=== PATIENT | female | born 1970 | race Caucasian/White ===

== ENCOUNTER → 2016-04-24 | Outpatient (CLI) | payer BC ==
[~2016-04-24] MED LIST: ACET-1256 PO; ATV1 PO; YAZ PO
== END | disposition home or self-care (01) ==
LOC: C.PATHSPEC 14:35
PROVIDERS: ATTEND Obstetrics & Gynecology
DX: N84.1 Polyp of cervix uteri (principal)

== ENCOUNTER → 2016-04-24 | Outpatient (CLI) | payer BC | END | disposition home or self-care (01) | LOC: C.PAPS 16:08 | PROVIDERS: ATTEND Obstetrics & Gynecology | DX: Z01.411 Encounter for gynecological examination (general) (routine) with abnormal findings (principal); N84.1 Polyp of cervix uteri ==

== ENCOUNTER → 2016-11-12 | Outpatient (CLI) | payer BC ==
[2016-11-12 14:45] LABS: URINE APPEARANCE CLEAR (CLEAR); URINE BILIRUBIN NEG (NEG); URINE COLOR YELLOW; URINE NITRITE NEG (NEG); URINE SPECIFIC GRAVITY 1.014 (1.000-1.030); UROBILINOGEN NEG (NEG)
[2016-11-12 14:55] LABS: MANUAL MICROSCOPIC REQUIRED? NO; REVIEW REQ? NO
== END | disposition home or self-care (01) ==
LOC: C.LABSPEC 14:21
PROVIDERS: ATTEND Obstetrics & Gynecology
DX: N39.0 Urinary tract infection, site not specified (principal); R30.0 Dysuria

== ENCOUNTER → 2016-11-20 | Outpatient (CLI) | payer BC | END | disposition home or self-care (01) | LOC: C.LAB 17:04 | PROVIDERS: ATTEND Obstetrics & Gynecology | DX: R14.0 Abdominal distension (gaseous) (principal); R53.83 Other fatigue; N92.0 Excessive and frequent menstruation with regular cycle ==

== ENCOUNTER → 2017-05-16 | Outpatient (CLI) | payer BC | END | disposition home or self-care (01) | LOC: C.PAPS 15:10 | PROVIDERS: ATTEND Obstetrics & Gynecology | DX: Z12.4 Encounter for screening for malignant neoplasm of cervix (principal) ==

== ENCOUNTER → 2017-07-31 | Outpatient (CLI) | payer BC ==
--- NOTE | 2017-07-31 15:07 | MAMMOGRAPHY REPORT ---
BILATERAL DIGITAL SCREENING MAMMOGRAM TOMOSYNTHESIS WITH CAD: 07/31/2017 CLINICAL HISTORY: Routine screening. Patient has no complaints. TECHNIQUE: Breast tomosynthesis in addition to standard 2D mammography was performed. Current study was also evaluated with a Computer Aided Detection (CAD) system. COMPARISON: Comparison is made to exams dated: 03/24/2014 mammogram, 06/20/2011 mammogram, 10/24/2010 m ammogram, 09/28/2009 mammogram - , and 08/06/2008. BREAST COMPOSITION: The tissue of both breasts is heterogeneously dense, which may obscure small mas ses. FINDINGS: The parenchymal pattern is unchanged. No developing mass, architectural distortion or clus ter of suspicious microcalcifications is seen in either breast. IMPRESSION: ACR BI-RADS CATEGORY 2: BENIGN There is no mammographic evidence of malignancy. A 1 year screening mammogram is recommended. The pa tient will receive written notification of the results. Approximately 10% of breast cancers are not detected with mammography. A negative mammographic report should not delay biopsy if a clinically suggestive mass is present. Dayna Davidson M.D. ay/:07/31/2017 09:02:42 Test Development Engineer: Alaina DE JESUS(R)(M), letter sent: Normal 1/2 BI-RADS Code: ACR BI-RADS Category 2: Benign
== END | disposition home or self-care (01) ==
LOC: C.MAMM 08:13
PROVIDERS: ATTEND Obstetrics & Gynecology
DX: Z12.31 Encounter for screening mammogram for malignant neoplasm of breast (principal)

== ENCOUNTER 2023-04-28 01:10 | Observation (INO) ==
--- NOTE | 2023-04-28 01:28 | Emergency Department Note ---
Impression & Plan Syncope, Abdominal pain, Ileitis, Hypotension ED Provider Note CHIEF COMPLAINT: Abdominal pain, syncope HISTORY OF PRESENTING ILLNESS: This 52-year-old female patient presents to the emergency department for evaluation of abdominal pain and syncope. The patient states that she has had abdominal pain that started 2 nights ago. The pain then lasted all day which is progressively getting worse. She states that the pain starts in her lower abdomen and then radiates up to her upper abdomen and feels like severe muscle spasms in her stomach. Tonight when she stood up to get out of bed she had a syncopal episode. The patient's reports that he heard a loud thump and found her lying on the floor. The patient states that she got very lightheaded and dizzy when she stood up and knew that she was going to pass out. The patient does not think she hit her head. Denies headache, dizziness, change in vision, nausea, vomiting, or change in personality. Denies any chest pain or SOB prior to or after the syncopal episode. She denies any pain from falling. No nausea or vomiting. Denies any fevers, cough, or URI symptoms. Denies any urinary symptoms. Denies constipation, diarrhea, or changes in her BMs. She had a normal BM yesterday and a small BM this morning. Took Advil prior to going to bed and tried Miralax earlier today too. She is currently going through menopause and her periods are random. Her LMP was 2 months ago. She denies a personal or family history of Crohn's Disease or Ulcerative Colitis. Last colonoscopy was about 3 years ago through [facility] per patient. She states that her colonoscopy showed "an area that was inflamed" that seemed to resolved after a clear liquid diet. She follows up with [facility] doctor's in [place] for intermittent right sided and upper abdominal pain. REVIEW OF SYSTEMS: See HPI for pertinent positives and pertinent negatives. ALLERGIES: Nitrates, macrobid, Bactrim MEDICATIONS: Lisinopril, HCTZ, metoprolol, estrogen PAST MEDICAL HISTORY: HTN. Denies any abdominal surgeries. PHYSICAL EXAM: VITALS: Vitals are noted on the nurse's note and reviewed by myself. GENERAL: Non toxic, no acute distress, non-diaphoretic. SKIN: No rashes or abnormal skin lesions to the abdomen. Capillary refill <2 sec. HEAD: Normocephalic and atraumatic. No tenderness to palpation or step-offs felt. EYES: PERRLA. EOMI. Conjunctivae without injection, sclerae without icterus. NOSE: Patent without discharge. MOUTH: Mucous membranes moist. Uvula midline. Airway patent. NECK: Supple without nuchal rigidity. HEART: Regular rate and rhythm without murmurs gallops or rubs. LUNGS: Clear to auscultation bilaterally without wheezes, rales or rhonchi. No retractions or accessory muscle use. ABDOMEN: Positive bowel sounds x 4. Normal tympanic percussion. Soft, diffusely tender to palpation, but increased tenderness centrally and in the upper abdomen. No masses or organomegaly. No CVA tenderness. Shaffer sign negative. No guarding or rebound tenderness. No focal RLQ or LLQ tenderness. MUSCULOSKELETAL: No gross musculoskeletal defects. Full range of motion of the bilateral upper and lower extremities without tenderness to palpation. Strength 5/5 and equal in the bilateral upper and lower extremities. NEURO: Patient was alert and oriented. No focal neurological deficits. Normal mental status exam. No focal neurological deficits. DIFFERENTIAL DIAGNOSIS: Differential diagnosis includes hepatitis, pancreatitis, cholecystitis, cholelithiasis, appendicitis, kidney stone, pyelonephritis, UTI, gastritis, gastroenteritis, mesenteric adenitis, obstruction, constipation, hernia, abdominal abscess, perforation, diverticulitis, IBD, ischemic colitis, abdominal aortic aneurysm, , ectopic , ovarian cyst, ovarian torsion, acute salpingitis, cardiac arrhythmia, MN, vasovagal syndrome, aortic stenosis, pulmonary stenosis, hypertrophic cardiomyopathy, mitral valve prolapse, prolonged QT syndrome, sick sinus syndrome, drug toxicity, tension pneumothorax, cardiopulmonary syncope, pulmonary vascular disease, basilar artery insufficiency, subclavian steal syndrome, migraine, carotid sinus syndrome, orthostatic hypotension, dehydration, hyperventilation, psychiatric causes, or others. ED COURSE AND MEDICAL DECISION MAKING: MONITOR: Continuous teletypesetter monitor: Order was placed for continuous teletypesetter monitor. Patient was placed on the teletypesetter monitor and continuous pulse ox. Patient was noted to be in normal sinus rhythm at an initial rate of 64 bpm per my interpretation. EKG: EKG was interpreted by myself as sinus bradycardia at [address]pm with no acute ST or T wave changes. MEDICATIONS GIVEN: A total of 1.5 L normal saline solution bolus. Toradol 10 mg IV and Zofran 4 mg IV. The patient declined any additional medication for pain while in the emergency department. INTERPRETATION OF LABS: I interpreted the labs with full lab results as below in the lab section of this note. White blood cell count elevated at 15.41. Hemoglobin normal at 15.2. Platelet count normal at 271. Creatinine elevated 1.26 and glucose 103, but CMP otherwise normal. Lipase normal. ESR and CRP were normal. High-sensitivity troponin normal. Serum hCG negative. Urinalysis negative for infection. INTERPRETATION OF IMAGING: Chest x-ray interpreted by myself as negative for acute cardiopulmonary etiology. Radiology report still pending. CT scan of the abdomen pelvis with IV contrast shows a segment of diffuse annular thickening within the distal ileum. Associated with this is adjacent inflammatory change and moderate mesenteric bursitis which is likely reactive. Findings may be due to active inflammatory bowel disease. Consider MR enterography if there is further concern. Submucosal enhancement within the cecum and ascending colon which may be reactive in nature. No evidence of bowel obstruction. CONSULTATIONS: Dr. Blankenship of GI. On-call hospitalist. MDM SUMMARY: I examined the patient. The patient has had abdominal pain for the past 2 nights with development of a syncopal episode prior to arrival. The patient states that she felt dizzy and lightheaded and knew that she was going to pass out when she stood up. An IV lock was placed and labs were drawn. The patient was medicated as above with improvement of her pain, but not full resolution of her pain. She declined any additional medication for pain while in the ER. White blood cell count elevated at 15.41 and creatinine elevated at 1.26. Remainder of the laboratory studies as above without significant abnormalities. Chest x-ray, EKG, and high-sensitivity troponin were normal. I do not suspect ACS at this time. The patient did not hit her head and she denies any headache, dizziness, change in vision, change in personality, or other symptoms suggesting need for CT scan of the head at this time. CT scan of the abdomen pelvis with IV contrast showed findings that may be due to active inflammatory bowel disease. I spoke with Dr. Blankenship of GI who stated the GI findings could be followed up/worked up as an outpatient and she did not require admission from a GI standpoint. However, the patient continued to have hypotension and bradycardia while in the emergency department. The patient states that this is not normal for her to have persisting low blood pressure. However, will sometimes have intermittent low blood pressures since starting her hormone replacement therapy. The patient was given a total of 1.5 L of normal saline solution bolus without improvement of her blood pressures. Due to the patient's persisting hypotension, bradycardia, and her syncopal episode along with the CT scan findings, I feel the patient requires admission for further evaluation and treatment. I spoke with the on-call hospitalist who agreed to admit the patient for further management. Please refer to their dictation for further details. The patient's care was transferred in stable condition. DIAGNOSIS: Syncope Hypotension Abdominal pain with abnormal CT scan findings Past Med/Surg History Medical History (Updated 04/28/23 @ 20:45 by Yomaira Goldman PA-C) Pituitary adenoma Menopausal and perimenopausal disorder Hypertension Surgical History (Updated 04/28/23 @ 13:29 by Alida Chan MD) S/P transsphenoidal hypophysectomy Family History (Updated 04/28/23 @ 13:32 by Alida Chan MD) Mother Hypertension Father FHx: liver cancer Social History (Updated 04/28/23 @ 13:30 by Alida Chan MD) Smoking Status: Never smoker Do You Dip or Chew Tobacco: No; Hx Alcohol Use: No Hx Substance Use: No Preferred Language: Tuvaluan Communication Ability: Effective Platform Operations Director Required: No Beliefs That Will Affect Care: None Current Living Situation: Spouse Other Information That Helps Us Care for You: No Feels Safe at Home: Yes Safety Concerns: Feels Safe At This Time Assistive Devices: None Allergies Allergies Allergy/AdvReac Type Severity Reaction Status Date / Time Nitrate Analogues Allergy Intermediate RASH Verified 04/28/23 02:03 nitrofurantoin Allergy Intermediate RASH Verified 04/28/23 02:03 Sulfa (Sulfonamide Allergy Intermediate RASH Verified 04/28/23 02:03 Antibiotics) trimethoprim Allergy Intermediate RASH Verified 04/28/23 02:03 metronidazole [From Flagyl] Allergy Rash Verified 04/28/23 14:09 Home Meds Home Medications Medication Instructions Recorded Confirmed estradiol-norethindrone acet 1 1 tab PO DAILY 04/28/23 04/28/23 mg-0.5 mg tablet hydrochlorothiazide 12.5 mg capsule 12.5 mg PO DAILY 04/28/23 04/28/23 lisinopril 20 mg tablet 20 mg PO DAILY 04/28/23 04/28/23 metoprolol succinate 25 mg 25 mg PO DAILY 04/28/23 04/28/23 tablet,extended release 24 hr trazodone 50 mg tablet 25 mg PO HS 04/28/23 04/28/23 Results & Data (ED) Vital Signs Vital Signs - 24 hr 04/28/23 01:21 04/28/23 02:18 04/28/23 02:19 Temperature 36.2 C L Temperature Source Temporal Artery Scan Pulse Rate 66 55 L Pulse Rate [Apical] 57 L Pulse Rhythm Regular Pulse Rhythm [Apical] Regular Pulse Strength [Apical] Normal Respiratory Rate 18 16 16 Respiratory Effort / Characteristics Non-Labored Spontaneous Respiratory Depth Normal Respiratory Pattern Regular Blood Pressure 139/87 Blood Pressure [Right Arm] 93/57 L Blood Pressure Mean 104 Blood Pressure Mean [Right Arm] 69 Blood Pressure Position [Right Arm] Semi-fowlers Pulse Oximetry 99 100 97 Oxygen Delivery Method Room Air Room Air Room Air Sepsis Recent Fever Within 48 Hours No Sepsis New/Unexplained Change in Mental Status No Sepsis Action Taken by Nursing No Action Required 04/28/23 03:30 04/28/23 04:00 04/28/23 06:00 Temperature Temperature Source Pulse Rate Pulse Rate [Apical] 57 L 58 L 59 L Pulse Rhythm Pulse Rhythm [Apical] Regular Regular Regular Pulse Strength [Apical] Normal Normal Normal Respiratory Rate 16 16 16 Respiratory Effort / Characteristics Non-Labored Spontaneous Non-Labored Spontaneous Non-Labored Spontaneous Respiratory Depth Normal Normal Normal Respiratory Pattern Regular Regular Regular Blood Pressure Blood Pressure [Right Arm] 130/76 88/55 L 105/60 Blood Pressure Mean Blood Pressure Mean [Right Arm] 94 66 75 Blood Pressure Position [Right Arm] Semi-fowlers Semi-fowlers Semi-fowlers Pulse Oximetry 99 96 99 Oxygen Delivery Method Room Air Room Air Room Air Sepsis Recent Fever Within 48 Hours Sepsis New/Unexplained Change in Mental Status Sepsis Action Taken by Nursing 04/28/23 06:15 04/28/23 06:30 04/28/23 07:15 Temperature Temperature Source Pulse Rate Pulse Rate [Apical] 58 L 58 L 69 Pulse Rhythm Pulse Rhythm [Apical] Regular Regular Pulse Strength [Apical] Normal Normal Respiratory Rate 16 16 14 Respiratory Effort / Characteristics Non-Labored Spontaneous Non-Labored Spontaneous Respiratory Depth Normal Normal Respiratory Pattern Regular Regular Blood Pressure Blood Pressure [Right Arm] 96/56 L 92/57 L 100/60 Blood Pressure Mean Blood Pressure Mean [Right Arm] 69 68 73 Blood Pressure Position [Right Arm] Semi-fowlers Semi-fowlers Pulse Oximetry 97 97 97 Oxygen Delivery Method Room Air Room Air Room Air Sepsis Recent Fever Within 48 Hours Sepsis New/Unexplained Change in Mental Status Sepsis Action Taken by Nursing 04/28/23 07:30 Temperature Temperature Source Pulse Rate Pulse Rate [Apical] 62 Pulse Rhythm Pulse Rhythm [Apical] Pulse Strength [Apical] Respiratory Rate 14 Respiratory Effort / Characteristics Respiratory Depth Respiratory Pattern Blood Pressure Blood Pressure [Right Arm] 113/65 Blood Pressure Mean Blood Pressure Mean [Right Arm] 81 Blood Pressure Position [Right Arm] Pulse Oximetry 97 Oxygen Delivery Method Room Air Sepsis Recent Fever Within 48 Hours Sepsis New/Unexplained Change in Mental Status Sepsis Action Taken by Nursing Laboratory Data 04/28/23 01:55 04/28/23 01:55 Lab Results 04/28/23 04/28/23 04/28/23 Range/Units 01:55 02:20 07:39 WBC 15.41 H (4.8-10.8) K/ul RBC 4.78 (4.20-5.40) M/uL Hgb 15.2 (12.0-16.0) g/dl Hct 43.6 (37.0-47.0) % MCV 91.2 (80.0-100.0) fL MCH 31.8 (25.0-34.0) pg MCHC 34.9 (32.0-36.0) g/dL RDW Std Deviation 39.9 (36.4-46.3) fL RDW Coeff of Silas 11.9 (11.5-14.5) % Plt Count 271 (130-400) K/uL MPV 10.4 (9.4-12.4) fL ESR 3 (0-30) mm/hr Sodium 137 (136-145) mmol/L Potassium 3.5 (3.5-5.1) mmol/L Chloride 101 (98-107) mmol/L Carbon Dioxide 28 (21-32) mmol/L Anion Gap 8 (3-11) BUN 18 (6-23) mg/dl Creatinine 1.26 H (0.6-1.2) mg/dl Est Cr Clr Drug Dosing 50.2 ml/min Est GFR ( Amer) 56.3 ml/min Est GFR (Non-Af Amer) 48.6 ml/min BUN/Creatinine Ratio 14.3 (10-20) Glucose 103 H (70-99(Fasting)) mg/dl Calcium 9.1 (8.6-10.3) mg/dl Total Bilirubin 0.8 (0.2-1.0) mg/dl AST 14 (13-39) U/L ALT 6 L (7-52) U/L Alkaline Phosphatase 52 (34-104) U/L Troponin I High Sens 3.0 (0-14) pg/ml C-Reactive Protein < 0.50 (0-0.5) mg/dl Total Protein 7.3 (6.0-8.3) gm/dl Albumin 4.6 (3.4-5.0) gm/dl Globulin 2.7 (2.5-4.0) gm/dl Albumin/Globulin Ratio 1.7 (0.9-2) Lipase 17 (11-82) U/L TSH 1.319 (0.300-4.500) uIu/ml HCG, Qual Negative (Negative) Cortisol AM Sample 11.15 (6.2-22.6) mcg/dl Urine Color Yellow Urine Appearance Clear (Clear) Urine pH 5.5 (4.5-7.5) Ur Specific Sullivan >= 1.030 (1.000-1.030) Urine Protein 1+ H (Negative) Urine Glucose (UA) Negative (Negative) Urine Ketones Negative (Negative) Urine Blood Negative (Negative) Urine Nitrite Negative (Negative) Urine Bilirubin 1+ H (Negative) Urine Urobilinogen Negative (Negative) Ur Leukocyte Esterase Negative (Negative) Urine RBC 0-4 (0-4) /hpf Urine WBC 0-5 (0-5) /hpf Ur Epithelial Cells 10-20 H (0-5) /lpf Urine Bacteria Negative (Negative) Urine Mucus Present A (None Prsent) Administered Medications Heparin Sodium (Porcine) (Heparin Sod 5,000 Unit/0.5 Ml Vial) 5,000 units SQ Q8 DIONICIO Stop: 05/28/23 13:59 Last Admin: 04/28/23 14:20 Dose: 5,000 units Documented By: KIRA Piperacillin Sod/Tazobactam (Sod 4.5 gm/ Dextrose) 100 mls @ 25 mls/hr IV Q8H [facility]; Protocol Stop: 05/08/23 13:59 Last Infusion: 04/28/23 18:34 Dose: Infused Documented By: Admin: 04/28/23 14:18 Dose: 25 mls/hr Documented By: KIRA Sodium Chloride (Nss) 1,000 mls @ 125 mls/hr IV .Q8H DIONIICO Stop: 04/28/23 20:29 Last Admin: 04/28/23 19:35 Dose: 125 mls/hr Documented By: LETICIA Polyethylene Glycol (Polyethylene (Miralax) 17 Gm Pack) 17 gm PO BID DIONICIO Stop: 05/28/23 11:12 Last Admin: 04/28/23 12:36 Dose: Not Given Documented By: KIRA Discontinued Medications Acetaminophen (Acetaminophen 325 Mg Tab) 650 mg PO Q4H PRN PRN Reason: Pain Stop: 05/28/23 09:37 Last Admin: 04/28/23 09:43 Dose: 650 mg Documented By: TANA Sodium Chloride (Nss) 1,000 mls @ 999 mls/hr IV .Q1H1M STA Stop: 04/28/23 02:37 Last Infusion: 04/28/23 03:15 Dose: Infused Documented By: Admin: 04/28/23 02:10 Dose: 999 mls/hr Documented By: MAXIMO Sodium Chloride (Nss) 500 mls @ 999 mls/hr IV .Q31M ONE Stop: 04/28/23 05:36 Last Infusion: 04/28/23 06:09 Dose: Infused Documented By: Admin: 04/28/23 05:37 Dose: 999 mls/hr Documented By: MAXIMO Sodium Chloride (Nss) 500 mls @ 125 mls/hr IV .Q4H [facility] Stop: 04/28/23 12:30 Last Infusion: 04/28/23 12:37 Dose: Infused Documented By: Admin: 04/28/23 12:36 Dose: Not Given Documented By: Admin: 04/28/23 08:25 Dose: 125 mls/hr Documented By: TANA Piperacillin Sod/Tazobactam Sod (Zosyn) 4.5 gm in 100 mls @ 200 mls/hr IV ONE ONE Stop: 04/28/23 08:29 Last Infusion: 04/28/23 08:55 Dose: Infused Documented By: Admin: 04/28/23 08:25 Dose: 200 mls/hr Documented By: TANA Ioversol (Optiray 320 500ml) 88 ml IV ONCE ONE Stop: 04/28/23 03:29 Last Admin: 04/28/23 03:28 Dose: 88 ml Documented By: LORNA Ketorolac Tromethamine (Ketorolac Tromethamine 15 Mg/Ml Vial) 10 mg IV NOW STA Stop: 04/28/23 01:38 Last Admin: 04/28/23 02:13 Dose: 10 mg Documented By: MAXIMO Ondansetron HCl (Ondansetron Inj 2 Mg/Ml 2 Ml Vial) 4 mg IV NOW STA Stop: 04/28/23 01:38 Last Admin: 04/28/23 02:11 Dose: 4 mg Documented By: MAXIMO Polyethylene Glycol (Polyethylene (Miralax) 17 Gm Pack) 17 gm PO BID DIONICIO Stop: 05/28/23 09:44 Last Admin: 04/28/23 09:44 Dose: 17 gm Documented By: TANA Imaging Data Radiologist's Impression: Abdomen/Pelvis CT 04/28/23 01:38 Exam(s): CT ABDOMEN + PELVIS With Contrast IV Amt: 88 cc's optiray 320 EXAM: CT Abdomen and Pelvis With Intravenous Contrast CLINICAL HISTORY: Reason for exam: Abdominal pain. TECHNIQUE: Axial computed tomography images of the abdomen and pelvis with intravenous contrast. CTDI is 14.14 mGy and DLP is 696.8 mGy-cm. Automated exposure control was utilized for the study. A dose lowering technique was utilized adhering to the principles of ALARA. CONTRAST: Patient received 88 cc's optiray 320 of IV contrast COMPARISON: No relevant prior studies available. FINDINGS: Lung bases: Unremarkable. No mass. No consolidation. ABDOMEN: Liver: Unremarkable. No mass. Gallbladder and bile ducts: Unremarkable. No calcified stones. No ductal dilation. Pancreas: Unremarkable. No mass. No ductal dilation. Spleen: Unremarkable. No splenomegaly. Adrenals: Unremarkable. No mass. Kidneys and ureters: Left renal cysts mixed. No hydronephrosis. Stomach and bowel: Submucosal enhancement within the cecum, and a sending colon which may be reactive in nature. No evidence of bowel obstruction. PELVIS: Appendix: Normal appendix. Bladder: Unremarkable. No mass. Reproductive: Suspected fibroid noted within the right aspect of the uterus. ABDOMEN and PELVIS: Intraperitoneal space: There is a segment of the diffuse annular thickening within the distal ileum. Associated with this is adjacent inflammatory change and moderate mesenteric ascites, likely reactive. Findings may be due to active inflammatory bowel disease. Consider MR enterography if there is further concern. Moderate mesenteric ascites. No free air. Bones/joints: Degenerative changes in the spine. No acute fracture. No dislocation. Soft tissues: Umbilical hernia containing fat. Vasculature: Prominent pelvic veins which may be due to congestion. Atherosclerotic disease. No abdominal aortic aneurysm. Lymph nodes: Unremarkable. No enlarged lymph nodes. IMPRESSION: 1. There is a segment of the diffuse annular thickening within the distal ileum. Associated with this is adjacent inflammatory change and moderate mesenteric ascites, likely reactive. Findings may be due to active inflammatory bowel disease. Consider MR enterography if there is further concern. 2. Submucosal enhancement within the cecum, and a sending colon which may be reactive in nature. 3. No evidence of bowel obstruction. 4. No other acute findings. 5. Incidental findings as described. Electronically signed by: Fareed Garsia MD 04/28/23 04:59 AM Discharge Plan Visit Data Chief Complaint: Syncope (Near Syncope) Stated Complaint: ABD PAIN,PASSED OUT ED Provider: Katie Ocasio ED Midlevel Provider: Yomaira Goldman. Discharge Problem: Syncope, Abdominal pain, Ileitis, Hypotension Patient Disposition: Admitted As Inpatient Condition: Good Discharge Instructions Interventions: ED Discharge Assessment Last Done: 04/28/23 10:35 Discharge Problem: Syncope Qualifiers: Encounter type: initial encounter Abdominal pain Qualifiers: Abdominal location: generalized Qualified Code(s): R10.84 - Generalized abdominal pain Hypotension Qualifiers: Hypotension type: unspecified hypotension type Qualified Code(s): I95.9 - Hypotension, unspecified
--- OUTSIDE RECORDS SUMMARY | 2023-04-28 01:37 | External Medical Summary | Summary of Care ---
Author Name Unknown Organization [facility] Address [address] [place] [address] Phone [phone] Care Team Providers Care It Sales Executive Name Role Phone Ernesto Alex MD Primary Care Provider +1- [phone] Reason for Visit * Reason Onset Date Comments Health Maintenance 04/10/2023 Encounter Details Date Type Department Care Team (Late st Contact Info) Description 04/10/2023 Telephone [facility] [address] [place] [address] Ernesto Alex MD [address] [place] [address] Health Maintenance Allergies Active Allergy Reactions Criticality Noted Date Comments Sulfa Antibiotics 05/30/2005 Severe stomach pain Metronidazole 07/06/2014 Nitrofurantoin 05/30/2005 Severe stomach pain documented as of this encounter (statuses as of 04/10/2023) Medications Medication Sig Dispensed Refills Start Date End Date Status Metoprolol Succinate ER 25 MG Oral Tablet Extended Release 24 Hour (toPROL XL) Take 1 Tablet by mouth in the morning. 30 Tablet 5 07/18/2022 Active Ibuprofen 800 MG Oral Tablet (Motrin)Indications: Oral abscess Take 1 Tablet by mouth in the morning and 1 Tablet at noon and 1 Tablet before bedtime. with food for pain. 30 Tablet 1 09/15/2022 Active traZODone HCl 50 MG Oral Tablet (Desyrel)Indications :Insomnia, unspecified type take 1/2 tablet by mouth at bedtime 45 Tablet 1 10/17/2022 Active Triamcinolone Acetonide 0.1 % External Cream (Aristocort)Indicati ons:Dermatitis Apply topically to affected area 2 times a day. To affected area. 45 g 5 10/25/2022 Active Lisinopril 20 MG Oral Tablet (Prinivil) Take 1 Tablet by mouth in the morning. 30 Tablet 11 11/02/2022 Active hydroCHLOROthiazide 12.5 MG Oral Capsule (Hydrodiuril)Indicat ions:HTN, goal below 130/80 Take 1 Capsule by mouth in the morning. 90 Capsule 3 11/30/2022 Active Hospital, Clinic, or Other Facility Administered Medication Ordered Dose Route Frequency Start Date End Date Status Albuterol Sulfate (ACCUNEB) nebulizer solution 0.63 mgIndications:TENA (dyspnea on exertion) 0.63 mg NEBULIZER PRN 10/11/2017 Act karoline documented as of this encounter (statuses as of 04/10/2023) Active Problems Problem Noted Date Diagnosed Date Dyshidrotic eczema 10/10/2011 Other chronic allergic conjunctivitis 01/09/2011 Calculus of kidney 11/30/1998 Allergic rhinitis 11/02/1996 Insomnia 11/02/1996 Overview: ICD-10 update of inactive term documented as of this encounter (statuses as of 04/10/2023) Resolved Problems Problem Noted Date Diagnosed Date Resolved Date Pituitary adenoma 11/19/2016 07/22/2022 Chronic sinusitis 01/09/2011 08/09/2017 ADVANCE DIRECTIVE INFORMATION 11/22/2004 08/22/2017 Overview: No, Advance Directive brochure offered , patient declined. Chest pain 06/23/2003 10/26/2015 Cough 06/23/2003 10/26/2015 ACUTE PHARYNGITIS 06/23/2003 05/20/2008 Overview: Resolved per Benign Acute Dxs Protocol #3 Menstruation, irregular 11/19/200006/25 Female genital symptoms 11/19/200007/25 Overview: ICD-10 update of inactive term ADJ DISORDER W/DEPRES MOOD 11/02/1996 1 04/28/1999 Other disorder of menstruati on and other abnormal bleeding from female genital tract 12/24/1999 HABITUAL ABORTER-UNSPEC 07/23 documented as of this encounter (statuses as of 04/10/2023) Immunizations Name Administration Dates Next Due TD, Preservative Free 07/24/2017 07/25/2027 TDAP (age 11 and older)(Adacel) 08/23/2006 documented as of this encounter Social History Tobacco Use Types Packs/Day Years Used Date Smoking Tobacco: Never Smokeless Tobacco: Never Alcohol Use Standard Drinks/Week Comments Yes 0 (1 standard drink = 0.6 oz pur e alcohol) rare PHQ-2 Answer Date Recorded PHQ-2 Score 0 09/22/2019 Hunger Vital Sign Answer Date Recorded Worried About Running Out of Food in the Last Ye ar Never true 09/22/2019 Ran Out of Food in the Last Year Never true 09/22/2019 Sex and Gender Information Value Date Recorded Sex Assigned at Not on file Gender Identity Not on file Sexual Orientation Straight 09/22/2019 8: 49 AM EDT Job Start Date Occupation Industry Not on file Not on file Not on file documented as of this encounter Functional Status Functional Status Response Date of Assess ment Are you deaf or do you have serious difficulty h earing? No 08/05/2015 Are you blind or do you have serious difficulty seeing, even when wearing glasses? No 08/05/2015 Do you have serious difficul ty walking or climbing stairs? (5 years old or older) No 08/05/2015 Do you have difficulty dress ing or bathing? (5 years old or older) No 08/05/2015 Because of a physical, menta l, or emotional condition, do you have difficulty doing errands alone such as visiting a doctor s office or shopping? (15 years old or older) No 08/05/19 16 Cognitive Status Response Date of Assessm ent Because of a physical, menta l, or emotional condition, do you have serious difficulty concentrating, remembering, or making decisions? (5 years old or older) No 08/05/2015 documented as of this encounter Miscellaneous Notes * Telephone Encounter - Claritza Padilla LPN - 04/10/2023 8:23 AM EST Care Gaps Comprehensive Care Outreach Last Office/Telemedicine Visit: 11/30/2022 (in office), Visit date not found (telemedicine) Next Office Visit: Visit date not found Hemoglobin AIC Results: Lab Results Component Value Date/Time HEMOGLOBIN A1C - BORAER 5.2 11/17/2008 09:36 AM Reviewed Health Maintenance below: Health Maintenance Topic Date Due Hepatitis B (1 of 3 - 3-dose series) Never done COVID-19 Vaccine (1) Never done Hepatitis C Screening Never done Zoster Vaccines (1 of 2) Never done Depression Screening 09/21/2020 PAP SMEAR-ANNUAL AGES 18-100 06/06/2022 Pap requested adam Pcp my g Care Gap Outreach Action Taken: Selo Reserva message sent documented in this encounter Plan of Treatment Health Maintenance Due Date Last Done Comments Hepatitis B (1 of 3 - 3-dose series) 1969 COVID-19 Vaccine (#1) 01/27/1970 Hepatitis C Screening 07/28/1987 Cologuard 2014 Fecal Occult Blood Test 2014 Sigmoidoscopy 2014 Zoster Vaccines (1 of 2) 07/28/2019 Depression Screening 09/21/2020 09/22/2019 PAP SMEAR-ANNUAL AGES 18-100 06/06/2022, 04/24/2016, 01/05/2014 (Done elsewhere), Additional history exists Influenza Vaccine (FLU shot) (#1) 2022 Mammogram 11/24/2023 11/23/2022, 0805/2021, 11/07/2020, Additional history exists Colonoscopy 07/26/2024 07/26/2014 Colorectal Cancer Screening 07/26/2024 Lipid Panel 08/11/2026 08/11/2021, 06/23, 05/02/2010 DTaP,Tdap,and Td Vaccines (3 - Td or Tdap) 07/25/2027 07/24/2017, 08/23/2006 GARDASIL-HPV IMMUNIZATION SERIES Aged Out No longer eligible based on patient's age to complete this topic MENINGOCOCCAL (MENACTRA/MENVEO) Aged Out No longer eligible based on patient's age to complete this topic Pneumococcal Vaccine: Pediatrics (0 to 5 Years) and At-Risk Patients (6 to 64 Years) Aged Out No longer eligible based on patient's age to complete this topic documented as of this encounter Medical Devices Not on filedocumented as of this encounter Care Teams It Sales Executive Relationship Specialty Start Date End Date Ernesto Alex MD [address] [place] [address] PCP - General 12/23/01 documented as of this encounter
--- OUTSIDE RECORDS SUMMARY | 2023-04-28 01:37 | External Medical Summary | Summary of Care ---
Author Name Unknown Organization [facility] Address [address] [place] [address] Phone [phone] Care Team Providers Care First Assistant Manager Name Role Phone Ernesto Alex MD Primary Care Provider +1- [phone] Reason for Visit * Reason Comments Follow Up Blood pressure Encounter Details Date Type Department Care Team Description 11/30/2022 Office Visit [facility] [address] [place] [address] Matthew Teague MD [address] [place] [address] HTN, goal below 130/80* Allergies Active Allergy Reactions Severity Noted Date Comments Sulfa Antibiotics 05/30/2005 Severe stomach pain Metronidazole 07/06/2014 Nitrofurantoin 05/30/2005 Severe stomach pain documented as of this encounter (statuses as of 11/30/2022) Medications Medication Sig Dispensed Refills Start Date [...] as of this encounter (statuses as of 11/30/2022) Active Problems Problem Noted Date Dyshidrotic eczema 10/10/2011 Other chronic allergic conjunctivitis Calculus of kidney 11/30/1998 Allergic rhinitis 11/02/1996 Insomnia 11/02/1996 Overview: ICD-10 update of inactive term documented as of this encounter (statuses as of 11/30/2022) Resolved Problems Problem Noted Date Resolved Date Pituitary adenoma 11/19/2016 07/22/2022 Chronic sinusitis 01/09/2011 08/09/2017 ADVANCE DIRECTIVE INFORMATION 11/22/2004 Overview: No, Advance Directive brochure offered , patient declined. Chest pain 06/23/2003 10/26/2015 Cough 06/23/2003 10/26/2015 ACUTE PHARYNGITIS 06/23/2003 05/20/2008 Overview: Resolved per Benign Acute Dxs Protocol #3 Menstruation, irregular 11/19/2000 07/23/19 23 Female genital symptoms 11/19/2000 08/23/19 18 Overview: ICD-10 update of inactive term ADJ DISORDER W/DEPRES MOOD 11/02/199602/25 Other disorder of menstruati on and other abnormal bleeding from female genital tract 12/24/1999 HABITUAL ABORTER-UNSPEC 08/10/19 18 documented as of this encounter (statuses as of 11/30/2022) Immunizations Name Administration Dates Next Due TD, Preservative Free 07/24/2017 07/25/2027 TDAP (age 11 and older)(Adacel) 08/23/2006 documented as of this encounter Social History Tobacco Use Types Packs/Day Years Used Date Smoking Tobacco: Never Smokeless Tobacco: Never Tobacco Cessation:Counseling Given: Not Answered Alcohol Use Standard Drinks/Week Comments Yes 0 (1 standard drink = 0.6 oz pur e alcohol) rare Food Insecurity Answer Date Recorded Within the past 12 months, y ou worried that your food would run out before you got money to buy more. Never true 09/22/2019 Within the past 12 months, t he food you bought just didn't last and you didn't have money to get more. Never true 09/22/2019 Sex Assigned at Date Recorded Not on file Job Start Date Occupation Industry Not on file Not on file Not on file documented as of this encounter Last Filed Vital Signs Vital Sign Reading Time Taken Comments Blood Pressure 156/78 11/30/2022 2:33 PM EDT Pulse 65 11/30/2022 2:33 PM EDT Temperature 36.3 C (97.3 F) 11/30/2022 2:33 PM ED T Respiratory Rate 20 11/30/2022 2:33 PM EDT Oxygen Saturation 99% 11/30/2022 2:33 PM EDT Inhaled Oxygen Concentration - - Weight 65.1 kg (143 lb 9.6 oz) 11/30/2022 2:33 P M EDT Height 170.2 cm (5' 7") 11/30/2022 2:33 PM EDT Body Mass Index 22.49 11/30/2022 2:33 PM EDT documented in this encounter Functional Status Functional Status Response [...] or making decisions? (5 years old or older No 08/05/2015 documented as of this encounter Progress Notes * Matthew Teague MD - 11/30/2022 2:55 PM EDT Subjective: Sylvia Akhtar is a 52 year old female. Chief Complaint Patient presents with Follow Up Blood pressure HPI: 52-year-old is seen today because of variety of symptoms. In particular she is concerned that she has ongoing shortness of breath with exertion in particular walking up a flight of steps and that is much different than her norm dating back a year ago. Additionally she knows that her blood pressure has been labile but for the most part has remained Um elevated with systolics typically in the low 150s as measured in the office as well as her measurements at home. Um she is having hot flashes. She sometimes feels anxious. She saw Dr. Rojo earlier today and was started on what she describedas a low-dose estrogen. She has not taken that yet. Her last menstrual period was in May. She hasa history of a pituitary adenoma dating back to 2008. She had surgery at that time but really has not had Um consistent follow-up. She just recently had pituitary hormone testing Um which did not show any significant abnormality. She uses trazodone 12.5 mg at bedtime to help with sleep. She notes that over the last 5 months it has not been as effective. Patient Active Problem List Diagnosis Code Allergic rhinitis J30.9 Insomnia G47.00 Calculus of kidney N20.0 Other chronic allergic conjunctivitis H10.45 Dyshidrotic eczema L30.1 Current Outpatient Medications Medication Sig Dispense Refill Metoprolol Succinate ER 25 MG Oral Tablet Extended Release 24 Hour (toPROL XL) Take 1 Tablet by mouth in the morning. 30 Tablet 5 Ibuprofen 800 MG Oral Tablet (Motrin) Take 1 Tablet by mouth in the morning and 1 Tablet at noon and 1 Tablet before bedtime. with food for pain. 30 Tablet 1 traZODone HCl 50 MG Oral Tablet (Desyrel) take 1/2 tablet by mouth at bedtime 45 Tablet 1 Triamcinolone Acetonide 0.1 % External Cream (Aristocort) Apply topically to affected area 2 times a day. To affected area. 45 g 5 Lisinopril 20 MG Oral Tablet (Prinivil) Take 1 Tablet by mouth in the morning. 30 Tablet 11 Current Facility-Administered Medications Medication Dose Route Frequency Provider Last Rate Last Admin Albuterol Sulfate (ACCUNEB) nebulizer solution 0.63 mg 0.63 mg Nebulizer PRN Tahmina Melvin PA-C Review of patient's allergies indicates: Allergen Reactions Bactrim [Sulfa Antibiotics] Severe stomach pain Flagyl [Metronidazole] Macrobid [Nitrofurantoin] Severe stomach pain Objective: BP 156/78 | Pulse 65 | Temp 36.3 C (97.3 F) (Temporal Artery) | Resp 20 | Ht 1.702 m (5' 7") | Wt 65.1 kg (143 lb 9.6 oz) | LMP (LMP Unknown) | SpO2 99% | BMI 22.49 kg/m | BSA 1.75 m Physical Exam: CONST: alert, pleasant, no acute distress HEAD: normocephalic, atraumatic NECK: supple, soft, no adenopathy Eyes - PERRLA, EOM'I OROPHARYNX: clear, no swelling or erythema, moist CV: regular rate and rhythm, no murmur CHEST: clear to auscultation bilaterally, no rales or wheezing ABD: soft, non tender, non distended, no masses or hepatosplenomegaly EXT: no edema, no joint swelling or deformities, . No calf tenderness NEURO: AAOx3, no gross focal deficits, cerebellar signs normal, affect appropriate MENTAL STATUS: no evidence of thought disorder, no delusional thought, no evidence of paranoia, thought is non-tangential. SKIN: no rash or significant lesions ASSESSMENT/PLAN: HTN, goal below 130/80 (Primary)-add hydrochlorothiazide 12.5 mg once daily. She will continue lisinopril 20 mg daily and metoprolol succinate 12.5 mg daily Perimenopause/menopause-I think in her situation, she might do well with the estrogen supplementation as provided by Dr. Rojo. She does have follow up with Dr. Rojo in 3 months. Sleep disturbance-I encouraged her to up the dose of trazodone to try to assure a reasonable sleep.Back off if she feels hung over the next day. Continue follow up with Dr. Abi Teague MD documented in this encounter Nursing Notes * Madison Combs LPN - 11/30/2022 2:33 PM EDT The patient has been properly identified by confirmation of name and date of . Chief Complaint Patient presents with Follow Up Blood pressure documented in this encounter Plan of Treatment [...] (FLU shot) (#1) 2022 Mammogram 11/24/2023 11/23/2022, 08/05/2021, 11/07/2020, Additional history exists Colonoscopy 07/26/2024 07/26/2014 [...] Not on filedocumented as of this encounter Visit Diagnoses Diagnosis HTN, goal below 130/80- Primary Unspecified essential hypertension documented in this encounter Care Teams First Assistant Manager Relationship Specialty Start Date End Date Ernesto Alex MD [address], [place] [id number] PCP - General 12/23/01 documented as of this encounter
--- OUTSIDE RECORDS SUMMARY | 2023-04-28 01:37 | External Medical Summary | Summary of Care ---
Author Name Unknown Organization [facility] Address [address] [place] [address] Phone [phone] Care Team Providers Care Accounting Representative Name Role Phone Ernesto Alex MD Primary Care Provider +1- [phone] Encounter Details Date Type Department Care Team Description 11/27/2022 Orders Only [facility] [address] [place] [address] Ernesto Alex MD [address] [place] [address] Allergies Active Allergy Reactions Severity Noted Date Comments Sulfa Antibiotics 05/30/2005 Severe stomach pain Metronidazole 07/06/2014 Nitrofurantoin 05/30/2005 Severe stomach pain documented as of this encounter (statuses as of 11/27/2022) Medications Medication Sig Dispensed Refills Start Date [...] the morning. 30 Tablet 11 11/02/2022 Active Hospital, Clinic, or Other Facility Administered Medication Ordered Dose Route Frequency Start Date End Date Status Albuterol Sulfate (ACCUNEB) nebulizer solution 0.63 mgIndications:TENA (dyspnea on exertion) 0.63 mg NEBULIZER PRN 10/11/2017 Act karoline documented as of this encounter (statuses as of 11/27/2022) Active Problems Problem Noted Date Dyshidrotic eczema 10/10/2011 Other chronic allergic conjunctivitis Calculus of kidney 11/30/1998 Allergic rhinitis 11/02/1996 Insomnia 11/02/1996 Overview: ICD-10 update of inactive term documented as of this encounter (statuses as of 11/27/2022) Resolved Problems Problem Noted Date Resolved Date [...] as of this encounter (statuses as of 11/27/2022) Immunizations Name Administration Dates Next Due TD, [...] No 08/05/2015 documented as of this encounter Plan of Treatment Health Maintenance Due Date Last Done Comments Hepatitis B (1 of 3 - 3-dose series) 1970 COVID-19 Vaccine (#1) 01/27/1970 Hepatitis C Screening 07/28/1987 Cologuard 2014 Fecal Occult Blood Test 2014 Sigmoidoscopy 2014 Zoster Vaccines (1 of 2) 07/28/2019 Depression Screening, Annual for Pts 12 and Over 09/21/2020 09/22/2019 PAP SMEAR-ANNUAL AGES 18-100 06/06/2022, 04/24/2016, 01/05/2014 (Done elsewhere), Additional history exists Influenza Vaccine (FLU shot) (#1) 2022 Mammogram 11/24/2023 11/23/2022, 10/24, 11/07/2020, Additional history exists Colonoscopy 07/26/2024 07/26/2014 [...] Not on filedocumented as of this encounter Procedures Procedure Name Priority Date/Time Associated Diagnosis Comments MAMMOGRAM SCREENING BILATERAL Routine 11/23/2022 documented in this encounter Results * MAMMOGRAM SCREENING BILATERAL (11/23/2022) Anatomical Region Laterality Modality Breast Bilateral Other 11/23/2022 Lionel Rojo MD RAD MAMMOGRAPHY documented in this encounter Care Teams Accounting Representative Relationship Specialty Start Date End Date Ernesto Alex MD [address] [place] [address] PCP - General 12/23/01 documented as of this encounter
--- OUTSIDE RECORDS SUMMARY | 2023-04-28 01:37 | External Medical Summary | Summary of Care ---
Author Name Unknown Organization [facility] Address [address] [place] [address] Phone [phone] Care Team Providers Care Concierge Name Role Phone Ernesto Alex MD Primary Care Provider +1- [phone] Encounter Details Date Type Department Care Team (Late st Contact Info) Description 04/25/2023 Orders Only [facility] [address] [place] [address] Ernesto Alex MD [address] [place] [address] Allergies Active Allergy Reactions Criticality Noted Date Comments Sulfa Antibiotics 05/30/2005 Severe stomach pain Metronidazole 07/06/2014 Nitrofurantoin 05/30/2005 Severe stomach pain documented as of this encounter (statuses as of 04/25/2023) Medications Medication Sig Dispensed Refills Start Date [...] for pain. 30 Tablet 1 09/15/2022 Active Triamcinolone Acetonide 0.1 % External Cream [...] the morning. 90 Capsule 3 11/30/2022 Active traZODone HCl 50 MG Oral Tablet (Desyrel)Indications :Insomnia, unspecified type TAKE 1/2 TABLET BY MOUTH AT BEDTIME 45 Tablet 1 04/24/2023 Active Hospital, Clinic, or Other Facility Administered Medication Ordered Dose Route Frequency Start Date End Date Status Albuterol Sulfate (ACCUNEB) nebulizer solution 0.63 mgIndications:TENA (dyspnea on exertion) 0.63 mg NEBULIZER PRN 10/11/2017 Act karoline documented as of this encounter (statuses as of 04/25/2023) Active Problems Problem Noted Date Diagnosed Date Dyshidrotic eczema 10/10/2011 Other chronic allergic conjunctivitis 01/09/2011 Calculus of kidney 11/30/1998 Allergic rhinitis 11/02/1996 Insomnia 11/02/1996 Overview: ICD-10 update of inactive term documented as of this encounter (statuses as of 04/25/2023) Resolved Problems Problem Noted Date Diagnosed Date [...] as of this encounter (statuses as of 04/25/2023) Immunizations Name Administration Dates Next Due TD, [...] of 2) 07/28/2019 Depression Screening 09/21/2020 09/22/2019 Influenza Vaccine (FLU shot) (#1) 2022 Mammogram 11/24/2023 11/23/2022, 0805/2021, 11/07/2020, Additional history exists PAP SMEAR-ANNUAL AGES 18-100 12/01/202310/2022, 06/06/2021, 04/24/2016, Additional history exists Colonoscopy 07/26/2024 07/26/2014 Colorectal [...] Procedure Name Priority Date/Time Associated Diagnosis Comments PAP SMEAR, OUTSIDE PROCEDURE Routine 11/30/2022 documented in this encounter Results * PAP SMEAR, OUTSIDE PROCEDURE (11/30/2022) 11/30/2022 Lionel Rojo MD LABORATORY OUTSIDE LAB (SEE SCANNED REPORT) documented in this encounter Care Teams Concierge Relationship Specialty Start Date End Date Ernesto Alex MD [address] [place] [address] PCP - General 12/23/01 documented as of this encounter
--- OUTSIDE RECORDS SUMMARY | 2023-04-28 01:37 | External Medical Summary | Summary of Care ---
Author Name Unknown Organization [facility] Address [address] [place] [address] Phone [phone] Care Team Providers Care Assessment Technician Name Role Phone Vickie Winter MD Primary Care Provider [phone] Reason for Visit * Reason Comments eRx-Medication Refill Encounter Details Date Type Department Care Team (Late st Contact Info) Description 04/22/[address] [facility] [address] [place] [address] Vickie Winter MD [address] [place] [address] Insomnia, unspecified type Allergies Active Allergy Reactions Criticality Noted Date Comments Sulfa Antibiotics 05/30/2005 Severe stomach pain Metronidazole 07/06/2014 Nitrofurantoin 05/30/2005 Severe stomach pain documented as of this encounter (statuses as of 04/24/2023) Medications Medication Sig Dispensed Refills Start Date End Date Status Metoprolol Succinate ER 25 MG Oral Tablet Extended Release 24 Hour (toPROL XL) Take 1 Tablet by mouth in the morning. 30 Tablet 5 07/18/2022 Active Ibuprofen 800 MG Oral Tablet (Motrin)Indicatio ns:Oral abscess Take 1 Tablet by mouth in the morning and 1 Tablet at noon and 1 Tablet before bedtime. with food for pain. 30 Tablet 1 09/15/2022 Active Triamcinolone Acetonide 0.1 % External Cream (Aristocort)Indic ations:Dermatitis Apply topically to affected area 2 times a day. To affected area. 45 g 5 10/25/2022 Active Lisinopril 20 MG Oral Tablet (Prinivil) Take 1 Tablet by mouth in the morning. 30 Tablet 11 11/02/2022 Active hydroCHLOROthiazi de 12.5 MG Oral Capsule (Hydrodiuril)Cathy cations:HTN, goal below 130/80 Take 1 Capsule by mouth in the morning. 90 Capsule 3 11/30/2022 Active traZODone HCl 50 MG Oral Tablet (Desyrel)Indicati ons:Insomnia, unspecified type TAKE 1/2 TABLET BY MOUTH AT BEDTIME 45 Tablet 1 04/24/2023 Active traZODone HCl 50 MG Oral Tablet (Desyrel)Indicati ons:Insomnia, unspecified type take 1/2 tablet by mouth at bedtime 45 Tablet 1 10/17/2022 4 Discontinued Hospital, Clinic, or Other Facility Administered Medication Ordered Dose Route Frequency Start Date End Date Status Albuterol Sulfate (ACCUNEB) nebulizer solution 0.63 mgIndications:TENA (dyspnea on exertion) 0.63 mg NEBULIZER PRN 10/11/2017 Act karoline documented as of this encounter (statuses as of 04/24/2023) Active Problems Problem Noted Date Diagnosed Date Dyshidrotic eczema 10/10/2011 Other chronic allergic conjunctivitis 01/09/2011 Calculus of kidney 11/30/1998 Allergic rhinitis 11/02/1996 Insomnia 11/02/1996 Overview: ICD-10 update of inactive term documented as of this encounter (statuses as of 04/24/2023) Resolved Problems Problem Noted Date Diagnosed Date [...] as of this encounter (statuses as of 04/24/2023) Immunizations Name Administration Dates Next Due TD, [...] encounter Miscellaneous Notes * Telephone Encounter - Yun Dougherty [facility] - 04/24/2023 6:08 AM ESTSigned Prescriptions: Disp Refills traZODone HCl 50 MG Oral Tablet (Desyrel) 45 Tab*1 Sig: TAKE 1/2TABLET BY MOUTH AT BEDTIMEAuthorizing Provider: VICKIE WINTER User: YUN DOUGHERTY--- documented in this encounter Plan of Treatment [...] as of this encounter Visit Diagnoses Diagnosis Insomnia, unspecified type documented in this encounter Care Teams Assessment Technician Relationship Specialty Start Date End Date Vickie Winter MD [address] [place] [address] PCP - General 12/23/01 documented as of this encounter
--- OUTSIDE RECORDS SUMMARY | 2023-04-28 01:38 | External Medical Summary | Summary of Care ---
Author Name Unknown Organization [facility] Address [address] [place] [address] Phone [phone] Care Team Providers Care [place] Representative Name Role Phone Ernesto Alex MD Primary Care Provider [phone]- [phone] Reason for Visit * Reason Onset Date Comments Other 11/02/2022 Encounter Details Date Type Department Care Team Description [facility] [facility] [address] [place] [facility] [place] [address] Ernesto Alex MD [address] [place] [facility] [place] [address] Other Allergies Active Allergy Reactions Severity Noted Date Comments Sulfa Antibiotics 05/30/2005 Severe stomach pain Metronidazole 07/06/2014 Nitrofurantoin 05/30/2005 Severe stomach pain documented as of this encounter (statuses as of 11/05/2022) Medications Medication Sig Dispensed Refills Start Date [...] the morning. 30 Tablet 11 11/02/2022 Active Lisinopril 10 MG Oral Tablet (Prinivil) Take 1 Tablet by mouth in the morning. 30 Tablet 5 08/07/2022 11/02/2022 Discontinued (Medication/ Dose Changed) Hospital, Clinic, or Other Facility Administered Medication Ordered Dose Route Frequency Start Date End Date Status Albuterol Sulfate (ACCUNEB) nebulizer solution 0.63 mgIndications:TENA (dyspnea on exertion) 0.63 mg NEBULIZER PRN 10/11/2017 Act karoline documented as of this encounter (statuses as of 11/05/2022) Active Problems Problem Noted Date Dyshidrotic eczema 10/10/2011 Other chronic allergic conjunctivitis Calculus of kidney 11/30/1998 Allergic rhinitis 11/02/1996 Insomnia 11/02/1996 Overview: ICD-10 update of inactive term documented as of this encounter (statuses as of 11/05/2022) Resolved Problems Problem Noted Date Resolved Date [...] as of this encounter (statuses as of 11/05/2022) Immunizations Name Administration Dates Next Due TD, [...] encounter Miscellaneous Notes * Telephone Encounter - Madison LuceroeddienilesCHACHA - 11/05/2022 1:02 PM EDT I identified pt by name and , verified by patient. Pt has been informed of below message and verbalized understanding. States she will come in for her labs and schedule an office visit * Telephone Encounter - Ernesto Alex MD - 11/02/2022 4:37 PM EDT In July we added lisinopril and she was to have a repeat nurse visit in 3-4 weeks. Looks like she cancelled several. In June, I ordered some labs which she has yet to have drawn. Suggest: Increase lisinopril to 20 mg - new rx sent.. Come in for labs. Schedule ov. * Telephone Encounter - Denia Virgen LPN - 11/02/2022 4:27 PM EDT PT STOPPED IN FOR A BP CHECK SUGGESTED BY THE PROVIDER. Blood pressure 158/92 Pulse 60 Pt is concerned what would be causing her high blood. ? What other test can be done. Pt states she gets out of breath when going up stairs and heart races. She just does not feel well. Pt made aware to make an appointment to be seen by a doctor sooner then later. She's concerned know one is listening. [id number] documented in this encounter Plan of Treatment Scheduled Orders Name Type Priority Associated Diagnoses Orde r Schedule BASIC METABOLIC PANEL Lab Routine HTN, goal below 140/90 Expected: 11/02/2022 (Approximate), Expires: 11/02/2023 Health Maintenance Due Date Last Done Comments Hepatitis B (1 of 3 - 3-dose series) 1970 COVID-19 Vaccine (#1) 01/27/1970 Hepatitis C Screening 07/28/1987 Cologuard 2014 Fecal Occult Blood Test 2014 Sigmoidoscopy 2014 Zoster Vaccines (1 of 2) 07/28/2019 Depression Screening, Annual for Pts 12 and Over 09/21/2020 09/22/2019 PAP SMEAR-ANNUAL AGES 18-100 06/06/2022, 04/24/2016, 01/05/2014 (Done elsewhere), Additional history exists Mammogram 11/14/2022 11/14/2021, 10/23, 11/03/2019, Additional history exists Influenza Vaccine (FLU shot) (#1) 2022 Colonoscopy 07/26/2024 07/26/2014 Colorectal Cancer Screening 07/26/2024 [...] encounter Visit Diagnoses Diagnosis HTN, goal below 140/90- Primary Unspecified essential hypertension documented in this encounter Care Teams [place] Representative Relationship Specialty Start Date End Date Ernesto Alex MD [address] [place] [address] PCP - General 12/23/01 documented as of this encounter
[2023-04-28] MEDS: SODIUM CHLORIDE 0.9% 1,000 ML IV STA (02:10)
[2023-04-28] MEDS: ONDANSETRON INJ 2 MG/ML 2 ML VIAL IV STA (02:11)
[2023-04-28] MEDS: KETOROLAC TROMETHAMINE 15 MG/ML VIAL IV STA (02:13)
[2023-04-28 02:17] LABS: Hematocrit (blood only) 43.6 % (37.0-47.0); Hemoglobin 15.2 g/dl (12.0-16.0); Mean Corpuscular Hemoglobin 31.8 pg (25.0-34.0); Mean Corpuscular Hgb Conc 34.9 g/dL (32.0-36.0); Mean Corpuscular Volume 91.2 fL (80.0-100.0); Mean Platelet Volume 10.4 fL (9.4-12.4); Platelet Count 271 K/uL (130-400); RDW Coefficient of Variation 11.9 % (11.5-14.5); RDW Standard Deviation 39.9 fL (36.4-46.3); Red Blood Count 4.78 M/uL (4.20-5.40); White Blood Count 15.41 K/ul (4.8-10.8)
[2023-04-28 02:27] LABS: Appearance Urine Clear (Clear); Bilirubin Urine 1+ (Negative); Blood Urine Negative (Negative); Color Urine Yellow; Glucose Urine UA Negative (Negative); Ketones Urine Negative (Negative); Leukocyte Esterase Urine Negative (Negative); Nitrite Urine Negative (Negative); Protein Urine 1+ (Negative); Specific Gravity Urine >= 1.030 (1.000-1.030); Urobilinogen Urine Negative (Negative); pH Urine 5.5 (4.5-7.5)
[2023-04-28 02:31] LABS: Pregnancy Test, Serum Negative (Negative)
[2023-04-28 02:34] LABS: Bacteria Urine Negative (Negative); Mucus Urine Present (None Prsent); RBC Urine 0-4 /hpf (0-4); WBC Urine 0-5 /hpf (0-5)
[2023-04-28 02:34] LABS: Alanine Aminotransferase 6 U/L (7-52); Albumin Globulin Ratio 1.7 (0.9-2); Albumin Level 4.6 gm/dl (3.4-5.0); Alkaline Phosphatase 52 U/L (34-104); Anion Gap 8 (3-11); Aspartate Aminotransferase 14 U/L (13-39); BUN Creatinine Ratio 14.3 (10-20); Bilirubin,Total 0.8 mg/dl (0.2-1.0); Blood Urea Nitrogen 18 mg/dl (6-23); Calcium 9.1 mg/dl (8.6-10.3); Carbon Dioxide 28 mmol/L (21-32); Chloride 101 mmol/L (98-107); Creatinine Clr Calc Pharmacy 50.2 ml/min; Est GFR (African American) 56.3 ml/min; Est GFR (Non-African American) 48.6 ml/min; Globulin 2.7 gm/dl (2.5-4.0); Glucose 103 mg/dl (70-99(Fasting)); Lipase 17 U/L (11-82); Potassium 3.5 mmol/L (3.5-5.1); Sodium 137 mmol/L (136-145); Total Protein 7.3 gm/dl (6.0-8.3)
[2023-04-28] MEDS: OPTIRAY 320 500ml IV ONE (03:28)
--- NOTE | 2023-04-28 04:59 | CT Scan Report ---
Exam(s): CT ABDOMEN + PELVIS With Contrast IV Amt: 88 cc's optiray 320 EXAM: CT Abdomen and Pelvis With Intravenous Contrast CLINICAL HISTORY: Reason for exam: Abdominal pain. TECHNIQUE: Axial computed tomography images of the abdomen and pelvis with intravenous contrast. CTDI is 14.14 mGy and DLP is 696.8 mGy-cm. Automated exposure control was utilized for the study. A dose lowering technique was utilized adhering to the principles of ALARA. CONTRAST: Patient received 88 cc's optiray 320 of IV contrast COMPARISON: No relevant prior studies available. FINDINGS: Lung bases: Unremarkable. No mass. No consolidation. ABDOMEN: Liver: Unremarkable. No mass. Gallbladder and bile ducts: Unremarkable. No calcified stones. No ductal dilation. Pancreas: Unremarkable. No mass. No ductal dilation. Spleen: Unremarkable. No splenomegaly. Adrenals: Unremarkable. No mass. Kidneys and ureters: Left renal cysts mixed. No hydronephrosis. Stomach and bowel: Submucosal enhancement within the cecum, and a sending colon which may be reactive in nature. No evidence of bowel obstruction. PELVIS: Appendix: Normal appendix. Bladder: Unremarkable. No mass. Reproductive: Suspected fibroid noted within the right aspect of the uterus. ABDOMEN and PELVIS: Intraperitoneal space: There is a segment of the diffuse annular thickening within the distal ileum. Associated with this is adjacent inflammatory change and moderate mesenteric ascites, likely reactive. Findings may be due to active inflammatory bowel disease. Consider MR enterography if there is further concern. Moderate mesenteric ascites. No free air. Bones/joints: Degenerative changes in the spine. No acute fracture. No dislocation. Soft tissues: Umbilical hernia containing fat. Vasculature: Prominent pelvic veins which may be due to congestion. Atherosclerotic disease. No abdominal aortic aneurysm. Lymph nodes: Unremarkable. No enlarged lymph nodes. IMPRESSION: 1. There is a segment of the diffuse annular thickening within the distal ileum. Associated with this is adjacent inflammatory change and moderate mesenteric ascites, likely reactive. Findings may be due to active inflammatory bowel disease. Consider MR enterography if there is further concern. 2. Submucosal enhancement within the cecum, and a sending colon which may be reactive in nature. 3. No evidence of bowel obstruction. 4. No other acute findings. 5. Incidental findings as described. Electronically signed by: Fareed Garsia MD 04/28/23 04:59 AM
[2023-04-28 05:27] LABS: C Reactive Protein < 0.50 mg/dl (0-0.5)
[2023-04-28] MEDS: SODIUM CHLORIDE 0.9% 500 ML IV ONE (05:37)
--- NOTE | 2023-04-28 07:30 | History & Physical Report ---
Date of Service April 28, 2023 Assessment & Plan (1) Ileitis: (2) Abdominal pain: (3) Hypertension: (4) Menopausal and perimenopausal disorder: Plan Ms. Akhtar is a 52 is a year old woman with past medical history remarkable for HTN, perimenopausal disorder, prior pituitary adenoma s/p transsphenoidal resection in 2008 presented to [facility] ED due to acute onset abdominal pain on 04/28 and admitted of evaluation of ileitis and management of hypotension. Patient with intermittent history of abdominal cramping, but always attributed to "hormones" or "menstrual cramping." Imaging consistent with ileitis Review of 2014 colonoscopy revealed normal terminal ileum, in addition to mild internal non-bleeding hemorrhoids. Routine 10 year repeat was recommended at that time. Patient underwent 2003 EGD, which was also normal in regards to gastric, e sophageal and duodenal exam. Hypotension likely insetting of multiple antihypertensives and reduced PO intake. Reports relatively normal pressures at home in "120s" on all agents, is unsure of heart rates. She denies history of palpitations, but states she was placed on metoprolol because her rates were in the "90s." She was also added on HCTZ recently in 11/2022--to which she states she feels a bit tired on. #Ileitis on imaging #Abnormal CT ABD/P ?inflammatory v infectious? Does not meet sepsis criteria -CT AB/P is a segment of the diffuse annular thickening within the distal ileum. Associated with this is adjacent inflammatory change and moderate mesenteric ascites, likely reactive. -GI consult -NPO initially, trial of CLD, as tolerated -Antiemetics, analgesia prn -Bowel regimen iso constipation -GI consulted, appreciate recommendations -ESR/CRP negative -Zosyn IV started 2/2 WBC while infectious r/o (allergic to flagyl) -UA negative, Blood cultures pending -Trial IV PPI BID #Relative Hypotension #Hypertension -Home regimen: Metoprolol 12.5mg, lisinopril 20mg, HCTZ 12.5mg -consider stepwise reintroduction, perhaps holding metoprolol 2/2 well controlled/lower rates -Monitor resolution of MARIA VICTORIA #MARIA VICTORIA OP Cr 0.72 -s/p 1.5 L in ED, NS @ 125 until PO intake -Avoid nephrotoxic agents -Repeat BMP, monitor UA #Pituitary adenoma MRI [facility] W WO CONTRAST 07/2022 Prior trans-sphenoidal resection of pituitary macro adenoma. Right temporomandibular joint effusion, synovitis, and loose bodies/synovial chondromatosis. 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 The enhancing regions have hardly enlarged since 01/29/2008. OP hormonal pituitary panel WNL, 11/26/2022 - IGF-1, LC/MS 135 - PROLACTIN 6.1 - GROWTH HORMONE (GH) 2.2 - CORTISOL 12.9 - ACTH 17 Cortisol and TSH on admission WNL #Hot flashes #Menopause -reviewed reasons for avoiding HRT DVT Heparin q8h Admit med/tele GI consult Full Code Admission and Anticipated Discharge Date Admission Date: Time spent evaluating patient, direct bedside care, chart review, placing orders, interpretation of diagnostic studies, discussion with consultants, patient, and family members, as well as other required patient management activities is 60 minutes. History of Present Illness Chief Complaint: Abdominal Pain, presyncope Primary Care Provider: Ernesto Alex MD Ms. Akhtar is a 52 is a year old woman with past medical history remarkable for HTN, perimenopausal disorder, prior pituitary adenoma s/p transsphenoidal resect ion in 2008 presented to [facility] ED due to acute onset abdominal pain. Patient reported pain that started in the lower abdomen then would radiate up towards right upper quadrant/epigastrium. Patient states that she has experienced similar cramping episodes previously, but never "this intense." The pain started last evening, 04/27, and was followed by presyncopal like symptoms--prompting presentation to the ED. Patient last took blood pressure medications on 04/27 am. Patient states that she did not collapse at home, but felt sweaty and nauseated, as well as lightheaded as if she was about to pass out. She denies chest pain, prior syncopal episodes, diarrhea, vomiting, palpitations or other acute concerns. She states she was in her usual state of health prior to presentation. Patient states for the last year she has experienced progressive cramping with bowel movements. Patient last had colonoscopy in 2014 given concerns of bleeding with bowel movement, she notes at that time it was in the setting of straining/constipation and no intense cramping. Patient denies any melena or hematochezia. Patient denies any known family history of UC, Crohns or other IBD or bowel issues. In the ED, vitals were notable for BP as low as 80s-90s, HR in 50s-60, and O2 sats in high 90s on RA CT ABD P reviewed and imaging revealed signs consistent with diffuse annular thickening of distal ileum, adjacent inflammatory change with moderate mesenteric ascites, no free air CXR reviewed, no effusions or congestion noted EKG with sinus bradycardia, otherwise MN interval stable no signs of block ED interventions: ketorlac IV, NS 1.5L Labs with MARIA VICTORIA to 1.26 and WBC to 15.41 Patient to be admitted to med/tele for further evaluation and management of ileitis and associated hypotension. Allergies Allergy/AdvReac Type Severity Reaction Status Date / Time Nitrate Analogues Allergy Intermediate RASH Verified 04/28/23 02:03 nitrofurantoin Allergy Intermediate RASH Verified 04/28/23 02:03 Sulfa (Sulfonamide Allergy Intermediate RASH Verified 04/28/23 02:03 Antibiotics) trimethoprim Allergy Intermediate RASH Verified 04/28/23 02:03 metronidazole [From Flagyl] Allergy Rash Verified 04/28/23 14:09 Home Medications Medication Instructions Recorded Confirmed Type estradiol-norethindrone acet 1 1 tab PO DAILY 04/28/23 04/28/23 History mg-0.5 mg tablet hydrochlorothiazide 12.5 mg capsule 12.5 mg PO DAILY 04/28/23 04/28/23 History lisinopril 20 mg tablet 20 mg PO DAILY 04/28/23 04/28/23 History metoprolol succinate 25 mg 25 mg PO DAILY 04/28/23 04/28/23 History tablet,extended release 24 hr trazodone 50 mg tablet 25 mg PO HS 04/28/23 04/28/23 History Past Med/Surg History Medical History (Updated 04/28/23 @ 13:28 by Alida Chan MD) Pituitary adenoma Menopausal and perimenopausal disorder Hypertension Surgical History (Updated 04/28/23 @ 13:29 by Alida Chan MD) S/P transsphenoidal hypophysectomy Family History (Updated 04/28/23 @ 13:32 by Alida Chan MD) Mother Hypertension Father FHx: liver cancer Social History (Updated 04/28/23 @ 13:30 by Alida Chan MD) Smoking Status: Never smoker Do You Dip or Chew Tobacco: No; Hx Alcohol Use: No Hx Substance Use: No Preferred Language: Zimbabwean Communication Ability: Effective 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 Head: (-) headache, (-) dizziness. Eye: (-) blurring of vision, (-) double vision, (-) redness. Ear: (-) hearing loss, (-) discharge, (-) vertigo Nose: (-) discharge, (-) bleeding, (-) congestion, (-) post nasal drip. Throat: (-) sore throat, (-) hoarseness of voice, (-) odynophagia. Cardiovascular: (-) chest pain, (-) palpitations, (-) syncope, (-) orthopnea, (- ) PND, (-) leg swelling. Respiratory: (-) shortness of breath, (-) cough, (-) wheezing, (-) hemoptysis. Neuro: (-) weakness in extremities, (-) numbness, (-) tingling, (-) tremor. Gastrointestinal:(+) belly pain, (-) belly distension, (-) nausea, (-) vomiting, (-) diarrhea, (+) constipation, (-) hematemesis, (-) hematochezia, (-) bowel incontinence Genitourinary: (-) hematuria, (-) dysuria, (-) polyuria, (-) hesitancy, (-) frequency, (-) urinary incontinence. Musculoskeletal: (-) myalgia, (-) arthralgia. Skin: (-) rashes. Endocrine: (-) heat/cold intolerance. Psychiatry: (-) depression, (-) hallucination. Physical Exam Physical Exam: GENERAL APPEARANCE: AxOx4, generally well-appearing F, no acute distress. HEENT: NC, AT. MMM. EOMI, clear conjunctiva, oropharynx clear. NECK: Supple without lymphadenopathy. No stiffness or restricted ROM. HEART: Normal rate and regular rhythm, normal S1/S1, no m/r/g LUNGS: CTAB, moving air well. No crackles or wheezes are heard. ABDOMEN: Soft, tender diffusely, notably right lower/suprapubic areas BACK: No CVAT, no obvious deformity. EXTREMITIES: Without cyanosis, clubbing or edema. NEUROLOGICAL: Grossly nonfocal. Alert and oriented, moving all 4 extremities. CN not formally tested but appear grossly intact. Observed to ambulate with normal gait. Skin: Warm and dry without any rash. Results & Data Results & Data Vital Signs (Past 12 Hours) Vital Signs Temp Pulse Pulse Resp BP BP Pulse Ox 04/28/23 06:30 58 L 16 92/57 L 97 04/28/23 06:15 58 L 16 96/56 L 97 04/28/23 06:00 59 L 16 105/60 99 04/28/23 04:00 58 L 16 88/55 L 96 04/28/23 03:30 57 L 16 130/76 99 04/28/23 02:19 57 L 16 93/57 L 97 04/28/23 02:18 55 L 16 100 04/28/23 01:21 36.2 C L 66 18 139/87 99 O2 Del Method 04/28/23 06:30 Room Air 04/28/23 06:15 Room Air 04/28/23 06:00 Room Air 04/28/23 04:00 Room Air 04/28/23 03:30 Room Air 04/28/23 02:19 Room Air 04/28/23 02:18 Room Air 04/28/23 01:21 Room Air Laboratory Results Short CBC 04/28/23 Range/Units 01:55 WBC 15.41 H (4.8-10.8) K/ul Hgb 15.2 (12.0-16.0) g/dl Hct 43.6 (37.0-47.0) % Plt Count 271 (130-400) K/uL BMP 04/28/23 01:55 Sodium 137 Potassium 3.5 Chloride 101 Carbon Dioxide 28 BUN 18 Creatinine 1.26 H Glucose 103 H Calcium 9.1 Liver Function 04/28/23 Range/Units 01:55 Total Bilirubin 0.8 (0.2-1.0) mg/dl AST 14 (13-39) U/L ALT 6 L (7-52) U/L Alkaline Phosphatase 52 (34-104) U/L Albumin 4.6 (3.4-5.0) gm/dl Urine 04/28/23 Range/Units 02:20 Urine Color Yellow Urine Appearance Clear (Clear) Urine pH 5.5 (4.5-7.5) Ur Specific [place] >= 1.030 (1.000-1.030) Urine Protein 1+ H (Negative) Urine Glucose (UA) Negative (Negative) Diagnostic Findings Abdomen/Pelvis CT 04/28/23 01:38 Exam(s): CT ABDOMEN + PELVIS With Contrast IV Amt: 88 cc's optiray 320 EXAM: CT Abdomen and Pelvis With Intravenous Contrast CLINICAL HISTORY: Reason for exam: Abdominal pain. TECHNIQUE: Axial computed tomography images of the abdomen and pelvis with intravenous contrast. CTDI is 14.14 mGy and DLP is 696.8 mGy-cm. Automated exposure control was utilized for the study. A dose lowering technique was utilized adhering to the principles of ALARA. CONTRAST: Patient received 88 cc's optiray 320 of IV contrast COMPARISON: No relevant prior studies available. FINDINGS: Lung bases: Unremarkable. No mass. No consolidation. ABDOMEN: Liver: Unremarkable. No mass. Gallbladder and bile ducts: Unremarkable. No calcified stones. No ductal dilation. Pancreas: Unremarkable. No mass. No ductal dilation. Spleen: Unremarkable. No splenomegaly. Adrenals: Unremarkable. No mass. Kidneys and ureters: Left renal cysts mixed. No hydronephrosis. Stomach and bowel: Submucosal enhancement within the cecum, and a sending colon which may be reactive in nature. No evidence of bowel obstruction. PELVIS: Appendix: Normal appendix. Bladder: Unremarkable. No mass. Reproductive: Suspected fibroid noted within the right aspect of the uterus. ABDOMEN and PELVIS: Intraperitoneal space: There is a segment of the diffuse annular thickening within the distal ileum. Associated with this is adjacent inflammatory change and moderate mesenteric ascites, likely reactive. Findings may be due to active inflammatory bowel disease. Consider MR enterography if there is further concern. Moderate mesenteric ascites. No free air. Bones/joints: Degenerative changes in the spine. No acute fracture. No dislocation. Soft tissues: Umbilical hernia containing fat. Vasculature: Prominent pelvic veins which may be due to congestion. Atherosclerotic disease. No abdominal aortic aneurysm. Lymph nodes: Unremarkable. No enlarged lymph nodes. IMPRESSION: 1. There is a segment of the diffuse annular thickening within the distal ileum. Associated with this is adjacent inflammatory change and moderate mesenteric ascites, likely reactive. Findings may be due to active inflammatory bowel disease. Consider MR enterography if there is further concern. 2. Submucosal enhancement within the cecum, and a sending colon which may be reactive in nature. 3. No evidence of bowel obstruction. 4. No other acute findings. 5. Incidental findings as described. Electronically signed by: Fareed Garsia MD 04/28/23 04:59 AM Chest X-Ray 04/28/23 01:38 XR chest 1V portable HISTORY: 52 years-old Female Abdominal pain, syncope acute chest and abdominal pain COMPARISON: CT abdomen and pelvis of same day TECHNIQUE: AP view of the chest FINDINGS: Cardiomediastinal and hilar silhouettes are within normal limits. No pneumothorax, pleural effusion or airspace consolidation. Bones of the chest appear grossly intact. IMPRESSION: No acute process of the chest. ACT 112: Negative or not required by law. The above report was generated using voice recognition software. It may contain grammatical, syntax or spelling errors. Electronically signed by: Raúl Beltran M.D. 04/28/2023 7:39 AM Medications Administered Home Medications Medication Instructions Recorded Confirmed Last Taken estradiol-norethindrone acet 1 1 tab PO DAILY 04/28/23 04/28/23 04/27/23 mg-0.5 mg tablet hydrochlorothiazide 12.5 mg capsule 12.5 mg PO DAILY 04/28/23 04/28/23 04/27/23 lisinopril 20 mg tablet 20 mg PO DAILY 04/28/23 04/28/23 04/27/23 metoprolol succinate 25 mg 25 mg PO DAILY 04/28/23 04/28/23 04/27/23 tablet,extended release 24 hr trazodone 50 mg tablet 25 mg PO HS 04/28/23 04/28/23 04/27/23 Active Medications Generic Name Dose Route Start Last Admin Trade Name Freq PRN Reason Stop Dose Admin Acetaminophen 650 mg 04/28/23 09:38 04/28/23 09:43 Acetaminophen 325 Mg Tab PO 05/28/23 09:37 650 mg Q4H PRN Administration Pain Polyethylene Glycol 17 gm 04/28/23 09:45 04/28/23 09:44 Polyethylene (Miralax) 17 Gm Pack PO 05/28/23 09:44 17 gm BID DIONICIO Administration Polyethylene Glycol 17 gm 04/28/23 11:13 04/28/23 12:36 Polyethylene (Miralax) 17 Gm Pack PO 05/28/23 11:12 Not Given BID DIONICIO
--- NOTE | 2023-04-28 07:40 | XRay Report ---
XR chest 1V portable HISTORY: 52 years-old Female Abdominal pain, syncope acute chest and abdominal pain COMPARISON: CT abdomen and pelvis of same day TECHNIQUE: AP view of the chest FINDINGS: Cardiomediastinal and hilar silhouettes are within normal limits. No pneumothorax, pleural effusion o r airspace consolidation. Bones of the chest appear grossly intact. IMPRESSION: No acute process of the chest. ACT 112: Negative or not required by law. The above report was generated using voice recognition software. It may contain grammatical, syntax o r spelling errors. Electronically signed by: Raúl Beltran M.D. 04/28/2023 7:39 AM
[2023-04-28] MEDS: PIPERACILLIN/TAZOBACTAM 4.5 GM/100 ML BAG IV ONE (08:25)
[2023-04-28] MEDS: SODIUM CHLORIDE 0.9% 500 ML IV SCH (08:25)
[2023-04-28] MEDS: ACETAMINOPHEN 325 MG TAB PO PRN (09:43)
[2023-04-28] MEDS: POLYETHYLENE (MIRALAX) 17 GM PACK PO SCH ×2 (09:44→12:36)
[2023-04-28] MEDS ORDERED: ALUMINUM/MAGNESIUM SUSP 30 ML UDC PO PRN (11:13)
[2023-04-28] MEDS ORDERED: ACETAMINOPHEN 325 MG TAB PO PRN (11:13)
[2023-04-28] MEDS ORDERED: ONDANSETRON INJ 2 MG/ML 2 ML VIAL IV PRN (11:13)
--- NOTE | 2023-04-28 13:23 | Electrocardiogram Report ---
Test Reason : Blood Pressure : / mmHG Vent. Rate : 057 BPM Atrial Rate : 057 BPM P-R Int : 172 ms QRS Dur : 080 ms QT Int : 444 ms P-R-T Axes : 051 016 043 degrees QTc Int : 432 ms Sinus bradycardia Otherwise normal ECG When compared with ECG of 09-MAR-2008 15:59, No significant change was found Confirmed by Jaxson Tran ([id number]) on 04/28/2023 1:23:24 PM Referred By: REFERRED SELF Confirmed By:Jaxson Tran
[2023-04-28] MEDS: PIPERACILLIN/TAZOBACTAM 4.5 GM in DEXTROSE 5% MINI-B 100 ML IV SCH (14:18)
[2023-04-28] MEDS: HEPARIN SOD 5,000 UNIT/0.5 ML VIAL SQ SCH (14:20)
[2023-04-28] MEDS: SODIUM CHLORIDE 0.9% 1,000 ML IV SCH (19:35)
[2023-04-28] MEDS: traZODone HCL 50 MG TAB PO SCH (21:09)
[2023-04-28] MEDS: PANTOprazole 40 MG in SYRINGE 0 ML IV SCH (21:10)
[2023-04-29 07:26] LABS: Hematocrit (blood only) 33.4 % (37.0-47.0); Hemoglobin 11.2 g/dl (12.0-16.0); Mean Corpuscular Hemoglobin 31.2 pg (25.0-34.0); Mean Corpuscular Hgb Conc 33.5 g/dL (32.0-36.0); Mean Platelet Volume 10.9 fL (9.4-12.4); Platelet Count 180 K/uL (130-400); RDW Coefficient of Variation 11.6 % (11.5-14.5); RDW Standard Deviation 39.8 fL (36.4-46.3); Red Blood Count 3.59 M/uL (4.20-5.40); White Blood Count 4.31 K/ul (4.8-10.8)
[2023-04-29 07:36] LABS: Albumin Globulin Ratio 1.8 (0.9-2); Albumin Level 3.4 gm/dl (3.4-5.0); BUN Creatinine Ratio 11.6 (10-20); Bilirubin,Total 0.8 mg/dl (0.2-1.0); Calcium 7.4 mg/dl (8.6-10.3); Creatinine Clr Calc Pharmacy 66.6 ml/min; Est GFR (African American) 79.3 ml/min; Est GFR (Non-African American) 68.4 ml/min; Globulin 1.9 gm/dl (2.5-4.0); Magnesium 1.9 mg/dl (1.7-2.4); Phosphorus 2.1 mg/dl (2.5-4.9); Potassium 3.6 mmol/L (3.5-5.1); Total Protein 5.3 gm/dl (6.0-8.3)
--- NOTE | 2023-04-29 10:08 | Gastrointestinal Consultation ---
Date of Consultation April 29, 2023 Assessment & Plan (1) Abdominal pain: (2) Ileitis: Pt is a 52 yo female, who presented w abd pain, bloating w CT findings of ileitis, ascites. DDX: infectious process, ? IBD. - IV antibx coverage; if pt would like to go home, can continue Augmentin x 10 days - Check stool cx and Cdiff, Yersinia - Diet as tolerated - Bentyl 10mg bid prn cramping/pain - Consider BONE TENDER eval for ascites - OP colonoscopy in 6 week's time Supervising Physician Co-Signing Physician Notes I saw and evaluated the patient, we were consulted for eval ration of abdominal discomfort and a CT which showed evidence of ileitis. Of note the patient denies having any diarrhea at the present time. She notes that her symptoms are much improved today IV hydration and antibiotic coverage. The patient did have a prior colonoscopy about 8 years ago which was within limits. She denies having fevers chills or sweats or rigors. Of note her CT does show inflammatory changes within the distal terminal ileum for a large amount of pelvic ascites. Recommendations C. difficile and stool culture/yersina 10-day course of antibiotic coverage (augmentin), patient notes that she would like to go home today as she is feeling much improved BONE TENDER consultation given pelvic Outpatient colonoscopy to be arranged in 6 to 8 weeks History of Present Illness Reason for Consultation: Ileitis Requesting Physician: Dr. Braxton Warner Attending Physician: Dr. Matt Berry History of Present Illness Pt is a 52 yo female w PMHx of HTN, perimenopausal disorder, prior pituitary adenoma s/p transsphenoidal resection in 2008 presented w c/o epigastric area abd pain x 3 days. She has chronic bloating and constipation. Last Isac started to have stabbing, cramping epigastric pain wo n/v, changes in her bowel habits such as diarrhea. Denies travels, sick contact, raw/undercooked foods. New meds include Lisinopril and Metoprolol. Upon eval, she was noted to have leukocytosis, normal WBC today on Zosyn IV. LFTs are normal. CT abd/pelvis showed thickening in distal ileum. There is also inflammatory changes and moderate mesenteric ascites, ? submucosal enhancement within the cecum and ascending colon, no bowel obstruction. She reports previous colonoscopy wo significant findings. Done by [facility] but she would like to establish with [facility] now. Allergies Allergy/AdvReac Type Severity Reaction Status Date / Time Nitrate Analogues Allergy Intermediate RASH Verified 04/28/23 02:03 nitrofurantoin Allergy Intermediate RASH Verified 04/28/23 02:03 Sulfa (Sulfonamide Allergy Intermediate RASH Verified 04/28/23 02:03 Antibiotics) trimethoprim Allergy Intermediate RASH Verified 04/28/23 02:03 metronidazole [From Flagyl] Allergy Rash Verified 04/28/23 14:09 Home Medications Medication Instructions Recorded Confirmed Type estradiol-norethindrone acet 1 1 tab PO DAILY 04/28/23 04/28/23 History mg-0.5 mg tablet hydrochlorothiazide 12.5 mg capsule 12.5 mg PO DAILY 04/28/23 04/28/23 History lisinopril 20 mg tablet 20 mg PO DAILY 04/28/23 04/28/23 History metoprolol succinate 25 mg 25 mg PO DAILY 04/28/23 04/28/23 History tablet,extended release 24 hr trazodone 50 mg tablet 25 mg PO HS 04/28/23 04/28/23 History Patient History Medical History (Updated 04/28/23 @ 20:45 by Yomaira Goldman PA-C) Pituitary adenoma Menopausal and perimenopausal disorder Hypertension Surgical History (Updated 04/28/23 @ 13:29 by Alida Chan MD) S/P transsphenoidal hypophysectomy Family History (Updated 04/28/23 @ 13:32 by Alida Chan MD) Mother Hypertension Father FHx: liver cancer Social History (Updated 04/28/23 @ 13:30 by Alida Chan MD) Smoking Status: Never smoker Do You Dip or Chew Tobacco: No; Hx Alcohol Use: No Hx Substance Use: No Preferred Language: Kuwaiti Communication Ability: Effective 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 Beliefs That Will Affect Care: None Current Living Situation: Spouse Other Information That Helps Us Care for You: No Feels Safe at Home: Yes Safety Concerns: Feels Safe At This Time Assistive Devices: None Review of Systems Review of Systems: All systems reviewed & are unremarkable except as noted in HPI & below Physical Exam Constitutional: WD/WN, vitals as above well groomed, cooperative and comfortable Eyes: PERRL, conjunctivae normal, anicteric sclerae ENMT: external ear and nose normal, oropharynx normal Respiratory: normal respiratory effort, lungs clear to auscultation Cardiovascular: RRR, no murmur, no edema Gastrointestinal (Abdomen): Soft, ttp epigastric, BS hypoactive Skin: no rashes, warm and dry no jaundice Psychiatric: A+Ox3, euthymic affect Lymphatic: no lymphedema Results & Data Vital Signs (Past 12 Hours) Vital Signs Temp Pulse Pulse Resp BP Pulse Ox O2 Del Method 04/29/23 07:32 36.7 C 63 16 106/69 95 Room Air 04/29/23 07:11 64 04/29/23 04:24 37.0 C 65 20 94/58 L 97 Room Air 04/29/23 00:44 36.6 C 64 20 96 Room Air 04/29/23 00:15 68 04/29/23 00:00 63 96/48 L (1) Abdominal pain Abdominal location: generalized Qualified Code(s): R10.84 - Generalized abdominal pain
[2023-04-29] MEDS: POT PHOSPHATE MONOBASIC W/ SOD TAB PO SCH (10:21)
[2023-04-29] MEDS ORDERED: DICYCLOMINE HCL 10 MG CAP PO PRN (12:55)
--- NOTE | 2023-04-29 12:59 | Hospitalist Progress Note ---
Date of Service April 29, 2023 Assessment & Plan (1) Ileitis: (2) Abdominal pain: (3) Hypertension: (4) Menopausal and perimenopausal disorder: Plan Ms. Akhtar is a 52 is a year old woman with past medical history remarkable for HTN, perimenopausal disorder, prior pituitary adenoma s/p transsphenoidal resection in 2008 presented to [facility] due to acute onset abdominal pain on 04/28 and admitted of evaluation of ileitis and management of hypotension. Imaging consistent with ileitis Review of 2015 colonoscopy revealed normal terminal ileum, in addition to mild internal non-bleeding hemorrhoids. Routine 10 year repeat was recommended at that time. Patient underwent 2003 EGD, which was also normal in regards to gastric, esophageal and duodenal exam. Ileitis/Enteritis Eccentric ascites/suspected fibroid uterus --CT ABD:There are several loops of circumferential small bowel wall thickening with mucosal hyperemia, interloop edema with small volume of ascites compatible with a nonspecific infectious or inflammatory enteritis without significant wall thickening of the terminal ileum. It was discussed that an MR enterography at this time would likely add no additional benefit. Follow up with GI would be recommended. -- Blood cultures pending --Stool cultures pending Received IV Zosyn>> plan to transition to Augmentin on discharge Appreciate GI input Bentyl as needed Needs colonoscopy as outpatient Advised to follow-up with ADHESIVE SPRAYER for evaluation of ascites as outpatient Patient prefers to be discharged home today despite pending results Hypotension H/O Hypertension Hold lisinopril, HCTZ Continue metoprolol with holding parameters MARIA VICTORIA Cr:1.26>0.95 Hold lisinopril Avoid nephrotoxic agents as able Received IV fluids Hypophosphatemia Replete electrolytes as needed Monitor As per prior provider Pituitary adenoma MRI [facility] W WO CONTRAST 07/2022 Prior trans-sphenoidal resection of pituitary macro adenoma. Right temporomandibular joint effusion, synovitis, and loose bodies/synovial chondromatosis. 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 The enhancing regions have hardly enlarged since 01/29/2008. OP hormonal pituitary panel WNL, 11/26/2022 - IGF-1, LC/MS 135 - PROLACTIN 6.1 - GROWTH HORMONE (GH) 2.2 - CORTISOL 12.9 - ACTH 17 Cortisol and TSH on admission WNL Follow-up as outpatient Hot flashes Menopause Reviewed reasons for avoiding HRT Follow-up with ADHESIVE SPRAYER as outpatient DVT Px: Heparin SQ Code Status Full Code Disposition Home Admission and Anticipated Discharge Date Admission Date: April 28, 2023 Subjective Patient is seen and examined at bedside Abdominal pain much improved Tolerating regular diet Had 1 loose BM today Denies any nausea, vomiting, chest pain, dyspnea Discussed with patient's family at bedside Prefers to be discharged home today Review of Systems Review of Systems: All systems reviewed & are unremarkable except as noted in Subjective Physical Exam Physical Exam: Physical Exam: Vitals signs as noted above General Appearance:Moderately built and nourished, no apparent distress Head: normocephalic, Atraumatic Eyes: normal inspection, EOMI Neck: supple, Trachea midline Respiratory/Chest: Normal breath sounds, CTA, No accessory muscle use Cardiovascular: S1, S2, No murmur Abdomen/GI:Soft, mild general tender, Bowel sounds present Extremities/Musculoskeletal:normal inspection, no edema Neurologic/Psych:AAOX3, grossly no focal neurological deficits Skin: normal color, warm Results & Data Results & Data Vital Signs (Past 12 Hours) Vital Signs Temp Pulse Pulse Resp BP Pulse Ox O2 Del Method 04/29/23 11:43 36.7 C 66 16 129/80 98 Room Air 04/29/23 07:32 36.7 C 63 16 106/69 95 Room Air 04/29/23 07:11 64 04/29/23 04:24 37.0 C 65 20 94/58 L 97 Room Air Laboratory Results Short CBC 04/29/23 Range/Units 06:30 WBC 4.31 L (4.8-10.8) K/ul Hgb 11.2 L D (12.0-16.0) g/dl Hct 33.4 L (37.0-47.0) % Plt Count 180 (130-400) K/uL BMP 04/29/23 06:30 Sodium 138 Potassium 3.6 Chloride 109 H Carbon Dioxide 24 BUN 11 Creatinine 0.95 D Glucose 85 Calcium 7.4 L Liver Function 04/29/23 Range/Units 06:30 Total Bilirubin 0.8 (0.2-1.0) mg/dl AST 10 L (13-39) U/L ALT 4 L (7-52) U/L Alkaline Phosphatase 40 (34-104) U/L Albumin 3.4 (3.4-5.0) gm/dl
--- NOTE | 2023-04-29 13:50 | Discharge Summary ---
Date of Service April 29, 2023 Admission HPI Per Admitting Provider Ms. Akhtar is a 52 is a year old woman with past medical history remarkable for HTN, perimenopausal disorder, prior pituitary adenoma s/p transsphenoidal resection in 2008 presented to [facility] due to acute onset abdominal pain. Patient reported pain that started in the lower abdomen then would radiate up towards right upper quadrant/epigastrium. Patient states that she has experienced similar cramping episodes previously, but never "this intense." The pain started last evening, 04/27, and was followed by presyncopal like symptoms--prompting presentation to the ED. Patient last took blood pressure medications on 04/27 am. Patient states that she did not collapse at home, but felt sweaty and nauseated, as well as lightheaded as if she was about to pass out. She denies chest pain, prior syncopal episodes, diarrhea, vomiting, palpitations or other acute concerns. She states she was in her usual state of health prior to presentation. Patient states for the last year she has experienced progressive cramping with bowel movements. Patient last had colonoscopy in 2014 given concerns of bleeding with bowel movement, she notes at that time it was in the setting of straining/constipation and no intense cramping. Patient denies any melena or hematochezia. Patient denies any known family history of UC, Crohns or other IBD or bowel issues. In the ED, vitals were notable for BP as low as 80s-90s, HR in 50s-60, and O2 sats in high 90s on RA CT ABD P reviewed and imaging revealed signs consistent with diffuse annular thickening of distal ileum, adjacent inflammatory change with moderate mesenteric ascites, no free air CXR reviewed, no effusions or congestion noted EKG with sinus bradycardia, otherwise WI interval stable no signs of block ED interventions: ketorlac IV, NS 1.5L Labs with MARIA VICTORIA to 1.26 and WBC to 15.41 Patient to be admitted to [facility] for further evaluation and management of ileitis and associated hypotension. Admission Exam Per Admitting Provider GENERAL APPEARANCE: AxOx4, generally well-appearing F, no acute distress. HEENT: NC, AT. MMM. EOMI, clear conjunctiva, oropharynx clear. NECK: Supple without lymphadenopathy. No stiffness or restricted ROM. HEART: Normal rate and regular rhythm, normal S1/S1, no m/r/g LUNGS: CTAB, moving air well. No crackles or wheezes are heard. ABDOMEN: Soft, tender diffusely, notably right lower/suprapubic areas BACK: No CVAT, no obvious deformity. EXTREMITIES: Without cyanosis, clubbing or edema. NEUROLOGICAL: Grossly nonfocal. Alert and oriented, moving all 4 extremities. CN not formally tested but appear grossly intact. Observed to ambulate with normal gait. Skin: Warm and dry without any rash. Principal Diagnosis Enteritis Suspected fibroid uterus Discharge Data Allergies Allergy/AdvReac Type Severity Reaction Status Date / Time Nitrate Analogues Allergy Intermediate RASH Verified 04/28/23 02:03 nitrofurantoin Allergy Intermediate RASH Verified 04/28/23 02:03 Sulfa (Sulfonamide Allergy Intermediate RASH Verified 04/28/23 02:03 Antibiotics) trimethoprim Allergy Intermediate RASH Verified 04/28/23 02:03 metronidazole [From Flagyl] Allergy Rash Verified 04/28/23 14:09 Consultations 04/28/23 07:25 ED Decision to Admit Stat 04/28/23 13:46 Consult Gastroenterology Routine Procedures Performed Laboratory Results WBC 4.31 K/ul (4.8-10.8) L 04/29/23 06:30 RBC 3.59 M/uL (4.20-5.40) L 04/29/23 06:30 Hgb 11.2 g/dl (12.0-16.0) L D 04/29/23 06:30 Hct 33.4 % (37.0-47.0) L 04/29/23 06:30 MCV 93.0 fL (80.0-100.0) 04/29/23 06:30 MCH 31.2 pg (25.0-34.0) 04/29/23 06:30 MCHC 33.5 g/dL (32.0-36.0) 04/29/23 06:30 RDW Std Deviation 39.8 fL (36.4-46.3) 04/29/23 06:30 RDW Coeff of Silas 11.6 % (11.5-14.5) 04/29/23 06:30 Plt Count 180 K/uL (130-400) 04/29/23 06:30 MPV 10.9 fL (9.4-12.4) 02/05/24 06:30 ESR 3 mm/hr (0-30) 04/28/23 01:55 Sodium 138 mmol/L (136-145) 04/29/23 06:30 Potassium 3.6 mmol/L (3.5-5.1) 04/29/23 06:30 Chloride 109 mmol/L (98-107) H 04/29/23 06:30 Carbon Dioxide 24 mmol/L (21-32) 04/29/23 06:30 Anion Gap 5 (3-11) 04/29/23 06:30 BUN 11 mg/dl (6-23) 04/29/23 06:30 Creatinine 0.95 mg/dl (0.6-1.2) D 04/29/23 06:30 Est Cr Clr Drug Dosing 66.6 ml/min 04/29/23 06:30 Est GFR ( Amer) 79.3 ml/min 04/29/23 06:30 Est GFR (Non-Af Amer) 68.4 ml/min 04/29/23 06:30 BUN/Creatinine Ratio 11.6 (10-20) 04/29/23 06:30 Glucose 85 mg/dl (70-99(Fasting)) 04/29/23 06:30 Calcium 7.4 mg/dl (8.6-10.3) L 04/29/23 06:30 Phosphorus 2.1 mg/dl (2.5-4.9) L 04/29/23 06:30 Magnesium 1.9 mg/dl (1.7-2.4) 04/29/23 06:30 Total Bilirubin 0.8 mg/dl (0.2-1.0) 04/29/23 06:30 AST 10 U/L (13-39) L 04/29/23 06:30 ALT 4 U/L (7-52) L 04/29/23 06:30 Alkaline Phosphatase 40 U/L (34-104) 04/29/23 06:30 Troponin I High Sens 3.0 pg/ml (0-14) 04/28/23 01:55 C-Reactive Protein < 0.50 mg/dl (0-0.5) 04/28/23 01:55 Total Protein 5.3 gm/dl (6.0-8.3) L D 04/29/23 06:30 Albumin 3.4 gm/dl (3.4-5.0) 04/29/23 06:30 Globulin 1.9 gm/dl (2.5-4.0) L 04/29/23 06:30 Albumin/Globulin Ratio 1.8 (0.9-2) 04/29/23 06:30 Lipase 17 U/L (11-82) 04/28/23 01:55 TSH 1.319 uIu/ml (0.300-4.500) 04/28/23 07:39 HCG, Qual Negative (Negative) 04/28/23 01:55 Cortisol AM Sample 11.15 mcg/dl (6.2-22.6) 04/28/23 07:39 Urine Color Yellow 04/28/23 02:20 Urine Appearance Clear (Clear) 04/28/23 02:20 Urine pH 5.5 (4.5-7.5) 04/28/23 02:20 Ur Specific [place] >= 1.030 (1.000-1.030) 04/28/23 02:20 Urine Protein 1+ (Negative) H 04/28/23 02:20 Urine Glucose (UA) Negative (Negative) 04/28/23 02:20 Urine Ketones Negative (Negative) 04/28/23 02:20 Urine Blood Negative (Negative) 04/28/23 02:20 Urine Nitrite Negative (Negative) 04/28/23 02:20 Urine Bilirubin 1+ (Negative) H 04/28/23 02:20 Urine Urobilinogen Negative (Negative) 04/28/23 02:20 Ur Leukocyte Esterase Negative (Negative) 04/28/23 02:20 Urine RBC 0-4 /hpf (0-4) 04/28/23 02:20 Urine WBC 0-5 /hpf (0-5) 04/28/23 02:20 Ur Epithelial Cells 10-20 /lpf (0-5) H 04/28/23 02:20 Urine Bacteria Negative (Negative) 04/28/23 02:20 Urine Mucus Present (None Prsent) A 04/28/23 02:20 Impressions Abdomen/Pelvis CT 04/28/23 01:38 Exam(s): CT ABDOMEN + PELVIS With Contrast IV Amt: 88 cc's optiray 320 EXAM: CT Abdomen and Pelvis With Intravenous Contrast CLINICAL HISTORY: Reason for exam: Abdominal pain. TECHNIQUE: Axial computed tomography images of the abdomen and pelvis with intravenous contrast. CTDI is 14.14 mGy and DLP is 696.8 mGy-cm. Automated exposure control was utilized for the study. A dose lowering technique was utilized adhering to the principles of ALARA. CONTRAST: Patient received 88 cc's optiray 320 of IV contrast COMPARISON: No relevant prior studies available. FINDINGS: Lung bases: Unremarkable. No mass. No consolidation. ABDOMEN: Liver: Unremarkable. No mass. Gallbladder and bile ducts: Unremarkable. No calcified stones. No ductal dilation. Pancreas: Unremarkable. No mass. No ductal dilation. Spleen: Unremarkable. No splenomegaly. Adrenals: Unremarkable. No mass. Kidneys and ureters: Left renal cysts mixed. No hydronephrosis. Stomach and bowel: Submucosal enhancement within the cecum, and a sending colon which may be reactive in nature. No evidence of bowel obstruction. PELVIS: Appendix: Normal appendix. Bladder: Unremarkable. No mass. Reproductive: Suspected fibroid noted within the right aspect of the uterus. ABDOMEN and PELVIS: Intraperitoneal space: There is a segment of the diffuse annular thickening within the distal ileum. Associated with this is adjacent inflammatory change and moderate mesenteric ascites, likely reactive. Findings may be due to active inflammatory bowel disease. Consider MR enterography if there is further concern. Moderate mesenteric ascites. No free air. Bones/joints: Degenerative changes in the spine. No acute fracture. No dislocation. Soft tissues: Umbilical hernia containing fat. Vasculature: Prominent pelvic veins which may be due to congestion. Atherosclerotic disease. No abdominal aortic aneurysm. Lymph nodes: Unremarkable. No enlarged lymph nodes. IMPRESSION: 1. There is a segment of the diffuse annular thickening within the distal ileum. Associated with this is adjacent inflammatory change and moderate mesenteric ascites, likely reactive. Findings may be due to active inflammatory bowel disease. Consider MR enterography if there is further concern. 2. Submucosal enhancement within the cecum, and a sending colon which may be reactive in nature. 3. No evidence of bowel obstruction. 4. No other acute findings. 5. Incidental findings as described. Electronically signed by: Fareed Garsia MD 04/28/23 04:59 AM Chest X-Ray 04/28/23 01:38 XR chest 1V portable HISTORY: 52 years-old Female Abdominal pain, syncope acute chest and abdominal pain COMPARISON: CT abdomen and pelvis of same day TECHNIQUE: AP view of the chest FINDINGS: Cardiomediastinal and hilar silhouettes are within normal limits. No pneumothorax, pleural effusion or airspace consolidation. Bones of the chest appear grossly intact. IMPRESSION: No acute process of the chest. ACT 112: Negative or not required by law. The above report was generated using voice recognition software. It may contain grammatical, syntax or spelling errors. Electronically signed by: Raúl Beltran M.D. 04/28/2023 7:39 AM Ordered Studies 04/28/23 01:38 CT abd pelvis IV con only Stat Hospital Course (1) Ileitis: (2) Abdominal pain: (3) Hypertension: (4) Menopausal and perimenopausal disorder: Plan Ms. Akhtar is a 52 is a year old woman with past medical history remarkable for HTN, perimenopausal disorder, prior pituitary adenoma s/p transsphenoidal resection in 2008 presented to [facility] due to acute onset abdominal pain on 04/28 and admitted of evaluation of ileitis and management of hypotension. Imaging consistent with ileitis Review of 2014 colonoscopy revealed normal terminal ileum, in addition to mild internal non-bleeding hemorrhoids. Routine 10 year repeat was recommended at that time. Patient underwent 2003 EGD, which was also normal in regards to gastric, esophageal and duodenal exam. Ileitis/Enteritis Eccentric ascites/suspected fibroid uterus --CT ABD:There are several loops of circumferential small bowel wall thickening with mucosal hyperemia, interloop edema with small volume of ascites compatible with a nonspecific infectious or inflammatory enteritis without significant wall thickening of the terminal ileum. It was discussed that an MR enterography at this time would likely add no additional benefit. Follow up with GI would be recommended. -- Blood cultures pending --Stool cultures pending Received IV Zosyn>> plan to transition to Augmentin on discharge Appreciate GI input Bentyl as needed Needs colonoscopy as outpatient Advised to follow-up with DRYING MACHINE RECEIVER for evaluation of ascites as outpatient Patient prefers to be discharged home today despite pending results Hypotension H/O Hypertension Hold lisinopril, HCTZ Continue metoprolol with holding parameters MARIA VICTORIA Cr:1.26>0.95 Hold lisinopril Avoid nephrotoxic agents as able Received IV fluids Hypophosphatemia Replete electrolytes as needed Monitor As per prior provider Pituitary adenoma MRI [facility] W WO CONTRAST 07/2022 Prior trans-sphenoidal resection of pituitary macro adenoma. Right temporomandibular joint effusion, synovitis, and loose bodies/synovial chondromatosis. 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 The enhancing regions have hardly enlarged since 01/29/2008. OP hormonal pituitary panel WNL, 11/26/2022 - IGF-1, LC/MS 135 - PROLACTIN 6.1 - GROWTH HORMONE (GH) 2.2 - CORTISOL 12.9 - ACTH 17 Cortisol and TSH on admission WNL Follow-up as outpatient Hot flashes Menopause Reviewed reasons for avoiding HRT Follow-up with DRYING MACHINE RECEIVER as outpatient DVT Px: Heparin SQ Code Status Full Code Disposition Home Total Time Total Time Spent Total Time Spent (In Minutes): 50 minutes Discharge Plan Discharge Items Patient Disposition: Home - Self-Care Reason For Visit: HYPOTENSION, ABDOMINAL PAIN Discharge Diagnosis: Enteritis Suspected fibroid uterus Condition on Discharge: Good Activity: Per Instructions section Exercise/Sports: Wait until after follow-up appointment Non-emergency contact: Primary Care Provider, Specialist and Automotive Brake Specialist Call non-emergency contact if: you have any medication questions, your symptoms worsen, your pain is concerning for you and you have a fever Follow-up/Referrals: Ernesto Alex MD [Primary Care Provider] - (Date & Time 05/06/2023 9:40 AM Provider Ernesto Alex MD [facility] ) Barbara Farley CRNP [Nurse Practitioner] - (The GI office will contact you for a follow up appointment/testing.) Diet: Heart Healthy Addtl Attending Provider Instructions: Follow-up with your primary physician on 05/06/2023 9:40 AM Follow-up with a aboriginal home school liaison officer Barbara FRANCO/ for outpatient colonoscopy as advised Follow-up with your DRYING MACHINE RECEIVER physician for further evaluation of possible fibroid uterus. --- Your final blood cultures are pending at the time of discharge. Follow-up with your physician for results. --Completed antibiotic with Augmentin as prescribed --If you have persistent diarrhea, you may need further testing of your stools to rule out infectious source. --Monitor your blood pressure regularly as advised. Discuss with your physician for further adjustment of blood pressure medications as recommended. Seek immediate medical attention if your symptoms reoccur or worsen Please take all medications as instructed on discharge list below. Please call if you have any questions or problems. You can reach a [facility] hospitalist on duty at [facility] 24 hours a day by calling [phone] Pending Studies at Discharge: Yes Studies:: Blood culture Stand-Alone Forms: My [facility], Smoking Cessation Medications and DC Order Prescriptions: New Phospha 250 Neutral 250 mg Tablet 1 tab PO QID Qty: 5 0RF dicyclomine 10 mg Capsule 10 mg PO BID PRN (Reason: abdominal pain) Qty: 10 0RF amoxicillin-pot clavulanate 875-125 mg tablet 1 tab PO BID 8 Days Qty: 16 0RF Advanced Probiotic 625 mg (10 billion cell) Capsule 2 cap PO DAILY Qty: 20 0RF Continued trazodone 50 mg tablet 25 mg PO HS estradiol-norethindrone acet 1-0.5 mg tablet 1 tab PO DAILY metoprolol succinate 25 mg tablet extended release 24 hr 25 mg PO DAILY Held lisinopril 20 mg tablet 20 mg PO DAILY Hold Instructions: Until further recommendations from your Primary care physician hydrochlorothiazide 12.5 mg capsule 12.5 mg PO DAILY Hold Instructions: Until further recommendations from your Primary care physician Discharge Orders: Discharge Order (Routine); Ordered 04/29/23 Ordered By: Braxton Warner Admission Data Admit Date/Time: 04/28/23 07:40 Attending Provider: Braxton Warner Admit Provider: Alida Chan Primary Care Provider: Ernesto Alex Other Providers: Alida Chan; Mary Blankenship Jr
[2023-04-30] MEDS ORDERED: ADVANCED PROBIOTIC 1250 MG CAPSULE PO SCH (09:00)
== END 2023-04-29 14:23 | disposition home or self-care (01) ==
LOC: ED 01:10 → INTOOBSV 07:40 → 2N 07:40 → SUATTDRO 07:40 → 2N 10:35